=== PATIENT | female | born 1950 | race Caucasian/White ===

== ENCOUNTER 2023-10-01 20:23 | Inpatient (IN) | payer MEDICARE, SELFPAY ==
[2023-10-01] VITALS (7 sets, daily range): BP systolic 174–215; BP diastolic 70–89; PULSE 19–79; RESP 16–20; TEMP 36.4–36.9; O2SAT 94–98; BMI 19.2
--- NOTE | 2023-10-01 20:35 | XRR_ITS ---
PROCEDURE INFORMATION: Exam: XR Chest Exam date and time: 10/01/2023 8:53 PM Age: 72 years old Clinical indication: Injury or trauma; Fall; Blunt trauma (contusions or hematomas) TECHNIQUE: Imaging protocol: Radiologic exam of the chest. Views: 1 view. COMPARISON: No relevant prior studies available. FINDINGS: Lungs: Calcified granuloma noted in the left lung base. Hyperinflated lungs. No consolidation. Pleural spaces: Unremarkable. No pleural effusion. No pneumothorax. Heart/Mediastinum: Unremarkable. No cardiomegaly. Bones/joints: Unremarkable. XR/XR chest 1V portable [id number] IMPRESSION: No acute findings.
--- NOTE | 2023-10-01 20:35 | XRR_ITS ---
PROCEDURE INFORMATION: Exam: XR Left Hip Exam date and time: 10/01/2023 8:43 PM Age: 72 years old Clinical indication: Injury or trauma; Fall; Blunt trauma (contusions or hematomas); Left; Hip TECHNIQUE: Imaging protocol: Radiologic exam of the left hip. Views: 2 or 3 views hip with pelvis when performed. COMPARISON: No relevant prior studies available. FINDINGS: Bones/joints: Intertrochanteric left hip fracture. Soft tissues: Unremarkable. XR/XR hip LT 2-3V wo/w pel* [id number] IMPRESSION: Intertrochanteric left hip fracture.
--- NOTE | 2023-10-01 20:37 | ED_ITS ---
HPI - Fall General: Chief Complaint: Fall Stated Complaint: Fall Hip Pain Time Seen by Provider: 10/01/23 20:33 Source: patient Mode of arrival: ambulatory Limitations: no limitations History of Present Illness: 72-year-old female who states that she had tripped and fell at home onto hardwood floor. She states that she landed on her left hip and has had severe left hip pain since then. She denies any other injuries today she states she is not able to stand on that leg. She rates her pain an 8 out of 10 is much worse with movement. Associated symptoms-after fall: Denies abdominal pain, chest pain, headache(s) or neck pain Review of Systems Const: Denies: fever(s), chills, body aches or change in appetite Eyes: Denies: eye discomfort ENMT: Denies: throat pain or dental pain Card: Denies: chest pain Resp: Denies: dyspnea GI: Denies: abdominal pain, nausea, vomiting or diarrhea Musc: Reports: extremity pain; Denies: neck pain or back pain Skin/Breast: Denies: rash Neuro: Denies: headache(s) Physical Exam Const: COMMON NORMALS: no acute distress, patient oriented x3 and healthy appearing HENMT: COMMON NORMALS: normocephalic and atraumatic HEAD & SCALP: normocephalic and atraumatic Neck/C-Spine: COMMON NORMALS: full ROM and supple Chest: COMMONS NORMALS: normal inspection of the chest Resp: COMMON NORMALS: normal respiratory effort Cardio: COMMON NORMALS: regular rate, regular rhythm and No murmurs present (Cardio) RATE: regular rate RHYTHM: regular rhythm GI: COMMON NORMALS: Normal to inspection, nondistended, normoactive bowel sounds present, Soft to palpation, non-tender and no masses PALPATION: Yes Soft to palpation Extremity: NARRATIVE EXTREMITY EXAM: Tenderness over left hip Neuro: COMMON NORMALS: patient oriented x3, moves all extremities and no focal motor deficits Psych: COMMON NORMALS: mental status grossly normal, Normal thought process present and cooperative THOUGHT PROCESS: Normal thought process present Skin: COMMON NORMALS: no rashes or lesions noted and no wounds GENERAL SKIN EXAM: no rashes or lesions noted Course Vital Signs: Vital signs: Vital Signs Temperature 97.5 F L 10/01/23 20:30 Pulse Rate 68 10/01/23 20:30 Respiratory Rate 18 10/01/23 20:30 Blood Pressure 215/89 10/01/23 20:30 Pulse Oximetry 98 10/01/23 20:30 MDM - Fall Medical Decision Making Patient presents here with a left hip fracture from a fall no other injuries noted from the fall spoke to hospitalist along with orthopedist and will admit at this time. Medical Records I reviewed the patient's medical records. Lab Data I reviewed the patient's lab results. 10/01/23 20:45 10/01/23 20:45 Laboratory Results WBC 11.60 10^3/uL (3.29-11.43) H 10/01/23 20:45 RBC 3.72 10^6/uL (3.85-5.65) L 10/01/23 20:45 Hgb 12.10 g/dL (11.27-16.99) 10/01/23 20:45 Hct 37.4 % (36-47) 10/01/23 20:45 MCV 100.5 fl (85-98) H 10/01/23 20:45 MCH 32.5 pg (27-33) 10/01/23 20:45 MCHC 32.4 g/dL (30-55) 10/01/23 20:45 RDW 13.2 % (12.1-15.1) 10/01/23 20:45 Plt Count 299 10^3/cmm (157-399) 10/01/23 20:45 MPV 9.3 fL (7.4-10.4) 10/01/23 20:45 Neut % (Auto) 82.2 % 10/01/23 20:45 Lymph % (Auto) 10.3 % 10/01/23 20:45 Laurel % (Auto) 5.7 % 10/01/23 20:45 Eos % (Auto) 1.2 % 10/01/23 20:45 Baso % (Auto) 0.1 % 10/01/23 20:45 Neut # (Auto) 9.53 10^3/uL (1.8-7.7) H 10/01/23 20:45 Lymph # (Auto) 1.2 10^3/uL (0.8-4.8) 10/01/23 20:45 Laurel # (Auto) 0.7 10^3/uL (0.2-0.9) 10/01/23 20:45 Eos # (Auto) 0.1 10^3/uL (0.0-0.8) 10/01/23 20:45 Baso # (Auto) 0.0 10^3/uL (0.0-0.1) 10/01/23 20:45 Nucleated RBC % (auto) 0 % 10/01/23 20:45 Nucleated RBCs # 0.0 /100WBC 10/01/23 20:45 PT 15.00 SECONDS (12.1-14.9) H 10/01/23 20:45 INR 1.14 (0.8-1.2) 10/01/23 20:45 XR interpretation done by ED provider, pending radiology final review ED provider radiology interpretation(s): xr L hip: intertrochanteric fracture Discharge Plan Discharge Patient Disposition: Admitted As Inpatient Clinical Impression: Closed fracture of left hip Condition: Stable Prescriptions: No Action acetaminophen-codeine 300-15 mg tablet 1 tab PO TID PRN (Reason: pain) Qty: 90 1RF lisinopril-hydrochlorothiazide 20-12.5 mg tablet 1 tab PO DAILY Qty: 90 3RF Referrals: Abiodun Joiner DO [Primary Care Provider] - Coding Level of Care Code ED Admitting Coordinator for Gerry Sánchez
--- NOTE | 2023-10-01 20:55 | ECG_ITS ---
[facility] Test Date: 2023-10-02 Pat Name: Milana Henning Department: Room: 272 Gender: Female [employer] Cell [employer] Assembler: : 1951-07-08 Requested By: Jensen Moses Order Number: [id number] Rene MD: Konstantin Evans M.D. Measurements Intervals Bard Rate: 73 P: 66 TN: 174 QRS: 45 QRSD: 82 T: 66 QT: 412 QTc: 455 Interpretive Statements SINUS RHYTHM No previous ECG available for comparison Electronically Signed On 10-03-2023 0:38:54 SOLE INKER by Konstantin Evans M.D. [email or web address]
[2023-10-01 21:01] LABS: Basophils % 0.1 %; Eosinophils # 0.1 10^3/uL (0.0-0.8); Eosinophils % 1.2 %; Hematocrit 37.4 % (36-47); Lymphocytes # 1.2 10^3/uL (0.8-4.8); Lymphocytes % 10.3 %; Mean Corpuscular HGB Conc 32.4 g/dL (30-55); Mean Corpuscular Hemoglobin 32.5 pg (27-33); Mean Corpuscular Volume 100.5 fl (85-98); Mean Platelet Volume 9.3 fL (7.4-10.4); Monocytes # 0.7 10^3/uL (0.2-0.9); Monocytes % 5.7 %; Neutrophils # 9.53 10^3/uL (1.8-7.7); Neutrophils % 82.2 %; Nucleated Red Blood Cells % 0 %; Platelet Count 299 10^3/cmm (157-399); Red Blood Count 3.72 10^6/uL (3.85-5.65); Red Cell Distribution Width 13.2 % (12.1-15.1)
[2023-10-01 21:07] LABS: INR 1.14 (0.8-1.2)
[2023-10-01] MEDS: morphine 4 mg/mL SDV 1 mL IVP ×2 (21:09→21:58)
[2023-10-01] MEDS: ondansetron 2 mg/ML SDV 2 mL 4 MG IVP (21:10)
[2023-10-01] MEDS: hyDRALAzine 20 mg/mL INJ 1 mL 10 MG IVP (21:10)
[2023-10-01 21:16] LABS: Alanine Aminotransferase 15 U/L (0-33); Albumin Level 4.2 g/dL (3.5-5.2); Alkaline Phosphatase 133 U/L (35-105); Anion Gap 14.4 (5-19); Aspartate Amino Transferase 20 U/L (0-32); Blood Urea Nitrogen 16 mg/dL (8-23); Calcium 8.7 mg/dL (8.5-10.5); Carbon Dioxide 26 mmol/L (22-29); Chloride 102 mmol/L (98-107); Globulin 2.4 g/dL (1.3-4.6); Glucose 174 mg/dL (65-115); Osmolality Calculated 291 mOsm/kg (285-295); Potassium 4.4 mmol/L (3.5-5.1); Sodium 138 mmol/L (136-145); Total Bilirubin 0.3 mg/dL (0.15-1.2); Total Protein 6.6 g/dL (6.6-8.7)
--- NOTE | 2023-10-01 21:32 | PC.NURSE ---
Report called to Med-Surg, report given by SAVANNAH Alba to SAVANNAH Estevez.
--- NOTE | 2023-10-01 21:55 | PC.NURSE ---
Dr Diaz gave verbal orders to put in order for 4mg morphine IVP once.
--- NOTE | 2023-10-01 22:00 | P.HP_ITS ---
Providers/Chief Complaint Admitting Physician: Anthony Diaz Primary Care Provider: Abiodun Joiner DO Chief Complaint: Fall Hip Pain History of Present Illness Milana Henning is a 72 year old female who states does not have any medical history apart from some hypertension related to her age, used to smoke more in the past, currently states does not smoke enough to count, was active all day today working in her garden, states dog up a tree, later was carrying a large basket down some stairs, lost her balance and fell down. Subsequently with pain in the left hip, on assessment in ER finding of intertrochanteric fracture of left hip. States she otherwise is as healthy as they come , states she is normally active, denies any exertional chest pain pressure or dyspnea or other limitations. Review of Systems Const: Denies: fever(s), chills, body aches or malaise ENMT: Denies: throat pain Card: Denies: chest pain, edema, pre-syncope or dyspnea on exertion Resp: Denies: dyspnea, productive cough, change in phlegm color or hemoptysis GI: Denies: abdominal pain, nausea, vomiting, diarrhea, constipation, hematochezia or melena : Denies: flank pain, urinary frequency or hematuria Musc: Reports: joint pain (L hip); Denies: back pain, joint swelling or joint redness Skin/Breast: Denies: rash or new lesions Neuro: Denies: headache(s), numbness in extremities, weakness in extremities, dizziness, confusion or seizure-like activity Medications/Allergies Home Medications Medication Instructions Recorded Confirmed Last Taken Type acetaminophen 300 mg-codeine 15 mg 1 tab PO TID PRN pain #90 tabs 08/19/23 08/19/23 Unknown Rx tablet lisinopril 20 1 tab PO DAILY #90 tabs 08/19/23 08/19/23 Unknown Rx mg-hydrochlorothiazide 12.5 mg tablet Allergies Allergy/AdvReac Type Severity Reaction Status Date / Time No Known Allergies Allergy Unverified 08/19/23 08:46 PFSH Acute PFSH: Medical History Hypertension Smoking Family History (Updated 10/01/23 @ 22:30 by Anthony Diaz MD) Other No significant family history Social History Smoking and tobacco/nicotine status: current some day tobacco/nicotine user Lives independently: Yes Household members: spouse Marital status: Vitals/I&O/Wt Last Vital Signs Temp 97.5 F L 10/01/23 20:30 Pulse 78 10/01/23 21:22 Resp 18 10/01/23 21:58 BP 174/70 10/01/23 21:22 Pulse Ox 97 10/01/23 21:22 Weight last 48 hrs Weight 50.802 kg Physical Exam Narrative: at bedside. Const: COMMON NORMALS: patient oriented x3 and alert GENERAL APPEARANCE: cooperative ORIENTATION/CONSCIOUSNESS: Yes awake HENMT: COMMON NORMALS: oropharynx normal Neck/C-Spine: COMMON NORMALS: no JVD Resp: COMMON NORMALS: normal respiratory effort and clear to auscultation bilaterally AUSCULTATION: clear to auscultation bilaterally Cardio: COMMON NORMALS: no JVD, regular rhythm, S1 normal heart sound present, S2 normal heart sound present and No murmurs present (Cardio) RHYTHM: regular rhythm HEART SOUNDS: S1 normal heart sound present and S2 normal heart sound present GI: COMMON NORMALS: Normal to inspection, nondistended, normoactive bowel sounds present, Soft to palpation and non-tender PALPATION: Yes Soft to palpation Extremity: COMMON NORMALS: no joint enlargement and no pedal edema NARRATIVE EXTREMITY EXAM: Extended left lower extremity, appears perfused, warm to touch. Neuro: COMMON NORMALS: patient oriented x3 and moves all extremities SENSORIUM/ORIENTATION: Yes alert Skin: COMMON NORMALS: no rashes or lesions noted GENERAL SKIN EXAM: no sreekanth hes or lesions noted Data 10/01/23 20:45 10/01/23 20:45 A&P Assessment and plan (1) Closed fracture of left hip: Closed left hip fracture after a fall at home carrying a large basket she states she lost her balance walking downstairs. She is interested in seeking repair of the hip and orthopedics has been consulted and will be seeing her. Discussing risks with anesthesia she does have history of hypertension, as well as smoking history, has cut down but still smoking. Otherwise she states she is very active and has felt as healthy as they, , denies any shortness of breath, chest pain or other exertional limitation. Prior to admission today was working in her garden and dug up a whole tree. Vitals, CBC, CMP, INR, chest x-ray, hip x- ray reviewed. ER documentation reviewed, discussed with ER physician. Baseline EKG requested. We will keep n.p.o. in anticipation of surgical repair of fracture tomorrow. Discussed with her holding antihypertensives. Discussed risk of anemia, recheck CBC and chemistry with noted mild renal dysfunction, creatinine 1.3, unclear if MICHEL versus CKD. BUN is noted WNL. 1 dose of heparin VTE prophylaxis, SCDs, hold additional heparin in anticipation of surgical procedure. Bedrest at current time. Pain control, requiring IV morphine in ER, states the first dose did not take the pain away. Dose repeated. We will switch to IV Dilaudid as needed for severe pain. Tylenol as needed. Case management consultation for disposition planning. (2) Hypertension: Blood pressure elevated 188/81, received a dose of hydralazine, but states otherwise she is normally controlled the last visit she states her blood pressure at PCPs office was 120s over 75. States likely is affected by pain as she is currently hurting. Requested pain control. (3) Smoking: Discussed smoking cessation, continue to encourage. nicotine replacement as needed. Attestations Medical Necessity Statement*: Admission of over 2 midnights anticipated for assessment management of left hip fracture. and High MDM includes amount and/or complexity of data reviewed/ordered [ previous or external records, resulted lab(s)/test(s), ordered lab(s)/test(s) and other healthcare professional discussion] and described risk of complication, morbidity or mortality of management as documented Diagnoses Closed fracture of left hip S72.002A Hypertension I10 Smoking F17.200
[2023-10-01] MEDS: heparin 5,000 unit/mL INJ 1 mL 5000 UNIT SUBCUT (23:05)
[2023-10-01] MEDS: HYDROmorphone 1 mg/mL INJ 1 mL 0.5 MG IVP (23:06)
[2023-10-02] VITALS (21 sets, daily range): BP systolic 108–174; BP diastolic 44–79; PULSE 45–74; RESP 12–20; TEMP 36.1–37.1; O2SAT 92–100
[2023-10-02] MEDS: cyclobenzaprine 10 mg Tablet 5 MG PO ×3 (01:10→11:36)
--- NOTE | 2023-10-02 01:38 | PC.NURSE ---
Patient refusing loyd catheter and repeat left leg x-ray at this time.
[2023-10-02] MEDS: HYDROmorphone 1 mg/mL INJ 1 mL 0.5 MG IVP ×3 (03:17→11:37)
[2023-10-02 06:29] LABS: Basophils % 0.1 %; Eosinophils % 0.2 %; Hematocrit 31.6 % (36-47); Lymphocytes # 1.3 10^3/uL (0.8-4.8); Lymphocytes % 9.2 %; Mean Corpuscular HGB Conc 32.9 g/dL (30-55); Mean Corpuscular Hemoglobin 33.2 pg (27-33); Mean Platelet Volume 9.3 fL (7.4-10.4); Monocytes % 7.5 %; Neutrophils # 11.24 10^3/uL (1.8-7.7); Neutrophils % 82.4 %; Nucleated Red Blood Cells % 0 %; Platelet Count 253 10^3/cmm (157-399); Red Blood Count 3.13 10^6/uL (3.85-5.65); Red Cell Distribution Width 13.2 % (12.1-15.1); White Blood Count 13.65 10^3/uL (3.29-11.43)
[2023-10-02 06:54] LABS: Alanine Aminotransferase 14 U/L (0-33); Alkaline Phosphatase 111 U/L (35-105); Anion Gap 12.6 (5-19); Aspartate Amino Transferase 15 U/L (0-32); Blood Urea Nitrogen 15 mg/dL (8-23); Calcium 8.8 mg/dL (8.5-10.5); Carbon Dioxide 24 mmol/L (22-29); Chloride 102 mmol/L (98-107); Creatinine Clr Calc Pharmacy 54.1095; Globulin 1.5 g/dL (1.3-4.6); Glucose 107 mg/dL (65-115); Osmolality Calculated 279 mOsm/kg (285-295); Potassium 4.6 mmol/L (3.5-5.1); Sodium 134 mmol/L (136-145); Total Bilirubin 0.7 mg/dL (0.15-1.2); Total Protein 5.5 g/dL (6.6-8.7)
--- NOTE | 2023-10-02 08:23 | P.CONIM_ITS ---
Reviewed PAs assessment and plan and agree with assessment and plan. Patient sustained a left intertrochanteric femur fracture that is displaced. She had baseline lives at home with her is Community ambulator at baseline. Denies any loss of consciousness or any other hip pain prior to her fall. At this point in time she has been admitted by the hospitalist orthopedics was c onsulted for treatment recommendations. This point time would recommend left hip cephalomedullary nail for left hip fracture to help with pain control as well as for earlier mobilization. We talked about the ins and outs procedure the risk benefits complications and alternatives with surgical nonsurgical treatment options. Risk of surgery include not limited to make a better make it worse injury to nerves also tendons, blood clot, heart attack, stroke, on table, hardware failure, nonunion. Understanding risk of surgery she elects to proceed all questions been answered at this time. We will proceed with surgical intervention with left hip cephalomedullary nail today. Brady Elizondo DO Providers/Reason For Consult Consulting Physician/Specialty*: Dr. Elizondo/orthopedic surgeon Reason for Consult*: Closed left hip fracture Requesting Physician: Dr. Moses ED Attending Physician: Jarrod Santoyo MD Primary Care Provider: Abiodun Joiner DO History of Present Illness History of Present Illness Milana Henning is a 72 year old female With a left hip fracture. Past medical history of hypertension. Patient was seen in the emergency department yesterday after she had a fall at her house where she was carrying a large basket down some steps and she lost her balance and fell backwards landing on left hip. At baseline, Patient is fully ambulatory without any Walking aid/assistive devices. Orthopedics were consulted to manage left hip fracture. Denies any fevers, chills, chest pain, shortness of breath, abdominal pain, nausea/vomiting or any UTI symptoms. Review of Systems Const: Denies: fever(s) or chills Card: Denies: chest pain Resp: Denies: dyspnea GI: Denies: abdominal pain, nausea or vomiting : Denies: dysuria Musc: Reports: extremity pain (left hip), joint pain (left hip) and limited range of motion (left hip) Medications/Allergies Home Medications Medication Instructions Recorded Confirmed Last Taken Type acetaminophen 300 mg-codeine 15 mg 1 tab PO TID PRN pain #90 tabs 08/19/23 10/02/23 Unknown Rx tablet lisinopril 20 1 tab PO DAILY #90 tabs 08/19/23 10/02/23 Unknown Rx mg-hydrochlorothiazide 12.5 mg tablet Allergies Allergy/AdvReac Type Severity Reaction Status Date / Time No Known Allergies Allergy Verified 10/02/23 08:08 Current Medications Generic Name Dose Route Start Last Admin Trade Name Freq PRN Reason Stop Dose Admin Cyclobenzaprine HCl 5 mg 10/02/23 00:10 10/02/23 01:10 Cyclobenzaprine 10 Mg Tablet PO 10/04/23 00:09 5 mg TID PRN Administration MUSCLE SPASMS Hydromorphone HCl 0.5 mg 10/01/23 22:22 10/02/23 03:17 Hydromorphone 1 Mg/Ml Inj 1 Ml IVP 0.5 mg Q4H PRN Administration SEVERE PAIN PFSH Acute PFSH: Medical History Hypertension Smoking Family History (Updated 10/01/23 @ 22:30 by Anthony Diaz MD) Other No significant family history Social History Smoking and tobacco/nicotine status: current some day tobacco/nicotine user Lives independently: Yes Household members: spouse Marital status: Vitals/I&O/Wt Last Vital Signs Temp 98.8 F 10/02/23 07:34 Pulse 57 L 10/02/23 07:34 Resp 17 10/02/23 07:34 BP 152/70 10/02/23 07:34 Pulse Ox 94 10/02/23 07:34 O2 Del Method Room Air 10/02/23 07:34 10/01/23 10/02/23 10/02/23 22:59 06:59 14:59 Output Total 750 / 750 Balance -750 / -750 Weight last 48 hrs Weight 112 lb Physical Exam Const: COMMON NORMALS: no acute distress and healthy appearing GENERAL APPEARANCE: cooperative HENMT: COMMON NORMALS: atraumatic HEAD & SCALP: normal to inspection and atraumatic Resp: COMMON NORMALS: normal respiratory effort EFFORT & INSPECTION: Yes able to speak in complete sentences and No respiratory distress Extremity: NARRATIVE EXTREMITY EXAM: Left hip left lower extremity-He has shortened and externally rotated. .She has tenderness to palpation over Greater trochanter of left hip. Pedal pulse 2+. Unable to do any range of motion and left leg due to pain. Patient can wiggle toes.Toes are warm well perfused with normal cap refill under 2 seconds. Secondary assessment of all other extremities show no visible deformities. She has full range of motion in right leg without any pain. She has full range of motion in arms bilaterally without any pain or discomfort. Radial pulse 2+ bilaterally and shoulders are nontender to palpation bilaterally. Skin: GENERAL SKIN EXAM: dry skin Urinary Catheter Management: 2-way Urethral: Cath Placed During This Visit: yes Reason for Continuing Indwelling Catheter: Perioperative Use in Selected Surgeries Urinary Catheter Date of Insertion: 10/02/23 Urinary Catheter Time of Insertion: 06:11 Data 10/02/23 05:45 10/02/23 05:45 Xray Ortho: Radiologist's impression: Left hip Xray XR/XR hip LT 2-3V wo/w pel* [id number] IMPRESSION: Intertrochanteric left hip fracture. ?Dictated By: Edi Mata DO Signed By: Edi Mata DO Signed Date/Time: 10/01/232129 DD/ 42 A&P Assessment and plan (1) Closed fracture of left hip: Plan Plan: -Imaging and Labs reviewed -Hospitalist on board for medical management. -VTE prophylaxis -Nonweightbearing on Left leg -Pain control -N.p.o. -Surgery later Today/afternoon for Left hip Trochanteric femur nail Coding Level of Care Code Acute Code for g Fwd Diagnoses Closed fracture of left hip S72.002A
--- NOTE | 2023-10-02 10:51 | PC.CHAP ---
Pastoral Care Encounter/Spiritual Assessment Type of Contact [] Declined infection prevention specialist visit [] Patient/Family/Request visit [] Outpatient visit [] Follow-up visit [] Physician referral [] Code/Alert [x] Routine visit [] Staff referral [] Actively dying [] Patient sleeping [] Family support [] [] Out of room [] Palliative care [] [] Receiving care in room [] Pre-surgical visit [] Trauma [] Long length of stay [] ICU visit [] Other: Relational/Emotional Strength [] Patient feels connected with others/family/visitors/staff [] Distress [] Loneliness/isolation [] Abandonment Spirituality of Patient [] Person of Ani [] Attends Roman Catholic of their Ani [] Believes in Prayer [] Reads Bible or Sabianism materials [] There are Spiritual issues to be addressed Laminator Hand Interventions [x] Prayer [x] Active listening [] Non-anxious presence [] Spiritual/emotional support [] Crisis/trauma care [] Spiritual counseling [] Bereavement support [] Provided bereavement packet [] Provided Bible/devotional materials [] Provided toy/stuffed animal, coloring book to patient or family member [] Provided Communion [] Anointing/[place] [] Salvation [] Completed spiritual assessment [] Other: Impact on Illness or Injury [] Angry [] Fearful [] Anxious [] Often cries [] Exhaustion [] Unable to work [] Unable to attend mormon [] Unable to walk/stand [] Unable to read [] Unable to drive [] Unable to eat/drink [] Unable to sleep [] Unable to be with family [] Patient intubated [] Other: Summary Time spent with patient 15 min
--- NOTE | 2023-10-02 12:48 | PM.PN ---
Subjective Subjective: Patient endorses significant pain in hip. Currently rates 8 out of 10 but states she just received Dilaudid. Reports prior dose of Dilaudid overnight improved the pain. Endorses associated muscle cramps. Denies fevers, chills, nausea, or emesis. Medications: Reviewed: Yes Vitals/I&O/Wt Last Vital Signs Temp 98.0 F 10/02/23 11:26 Pulse 62 10/02/23 11:26 Resp 18 10/02/23 11:37 BP 153/73 10/02/23 11:26 Pulse Ox 96 10/02/23 11:37 O2 Del Method Room Air 10/02/23 11:26 10/01/23 10/02/23 10/02/23 22:59 06:59 14:59 Output Total 750 / 750 Balance -750 / -750 Weight last 48 hrs Weight 50.802 kg Physical Exam Narrative: General: Patient is awake and alert. Head: Normocephalic. Atraumatic. EOM intact. Neck: No JVD. Cardiovascular: RRR. No gallops. No murmurs. No peripheral edema. Lungs: Clear to auscultation, no use of accessory muscles, no crackles or wheezes. Skin: No jaundice. No rashes. Abdomen: Normal bowel sounds, abdomen soft and nontender. Genito Urinary: Genital exam not performed since complaints not related. Rectal: Rectal exam not performed since no symptoms indicated blood loss. Extremities: No cyanosis or clubbing. LLE shorter and externally rotated. Neurological: Moves all 4 extremities. No myoclonus. Urinary Catheter Management: 2-way Urethral: Cath Placed During This Visit: yes Reason for Continuing Indwelling Catheter: Perioperative Use in Selected Surgeries Urinary Catheter Date of Insertion: 10/02/23 Urinary Catheter Time of Insertion: 06:11 Data 10/02/23 05:45 10/02/23 05:45 A&P Assessment and plan (1) Closed fracture of left hip: Bedrest Baez Hydromorphone for analgesic Orthopedics consulted, anticipate surgery later today Therapy after surgery (2) Hypertension: Exacerbated by pain from hip fracture Optimize pain control Monitor blood pressure (3) Smoking: Wound benefit from cessation (4) MICHEL (acute kidney injury): Resolved with IV fluids Plan DVT ppx: SCD Code: Full Attestations Medical Necessity Statement*: Patient requires ongoing hospitalization for IV analgesics, surgery and supportive care. Coding Level of Care Code Acute Code for Chg Fwd Diagnoses Closed fracture of left hip S72.002A Hypertension I10 Smoking F17.200 MICHEL (acute kidney injury) N17.9
[2023-10-02] MEDS: sodium chloride 0.9% 1,000 ML 30 ML IV (13:24)
[2023-10-02] MEDS: acetaminophen 1,000 MG/100 ML PIGGYBACK 400 MG IV (13:24)
[2023-10-02] MEDS: ketorolac 30 mg/mL INJ IVP (13:27)
--- NOTE | 2023-10-02 13:30 | ANES.PREANE2 ---
Pre-Anesthetic Assessment Height/Weight: Height 1.63 m Weight 50.802 kg Temp Pulse Resp BP Pulse Ox O2 Del Method 98.0 F 62 18 153/73 96 Room Air 10/02/23 11:26 10/02/23 11:26 10/02/23 11:37 10/02/23 11:26 10/02/23 11:37 10/02/23 11:26 Preop Diagnosis: Left Intertrochanteric femur fx Operation Date: 10/02/23 14:15 Proposed Procedures p Trochanteric Femoral Nail(Left) - Brady Elizondo, Familial anesthetic complications: PONV Was Beta Amilcar taken within 24 hours: N/A Was Clonidine taken within 24 hours: N/A Last intake: Intake Last Liquid Date 10/02/23 Last Liquid Time 00:00 Last Solid Date 10/01/23 Last Solid Time 17:30 Social Tobacco and No alcohol Exam alert, oriented x 3, clear to auscultation bilaterally and regular rate & rhythm Airway Submandibular: within normal limits Cervical ROM: within normal limits Mallampati: Class II Dentition: partials Pulmonary Chronic Obstructive Pulmonary Disease CV/HEM Hypertension [facility] [place] Osteoarthritis/DJD Anesthetic Plan ASA status: 3 Anesthesia: General (TIVA) Medications/Allergies Home Medications Medication Instructions Recorded Confirmed Last Taken Type acetaminophen 300 mg-codeine 15 mg 1 tab PO TID PRN pain #90 tabs 08/19/23 10/02/23 Unknown Rx tablet lisinopril 20 1 tab PO DAILY #90 tabs 08/19/23 10/02/23 Unknown Rx mg-hydrochlorothiazide 12.5 mg tablet Allergies Allergy/AdvReac Type Severity Reaction Status Date / Time No Known Allergies Allergy Verified 10/02/23 08:08 Current Medications Generic Name Dose Route Start Last Admin Trade Name Freq PRN Reason Stop Dose Admin Cyclobenzaprine HCl 5 mg 10/02/23 00:10 10/02/23 11:36 Cyclobenzaprine 10 Mg Tablet PO 10/04/23 00:09 5 mg TID PRN Administration MUSCLE SPASMS Hydromorphone HCl 0.5 mg 10/02/23 08:40 10/02/23 11:37 Hydromorphone 1 Mg/Ml Inj 1 Ml IVP 0.5 mg Q2H PRN Administration SEVERE PAIN Sodium Chloride 1,000 mls @ 30 mls/hr 10/02/23 13:00 10/02/23 13:24 Sodium Chloride 0.9% IV 10/03/23 12:59 30 mls/hr .Q24H DAVID Administration PFSH Anesthesia Medical History Hypertension Smoking Family History (Updated 10/01/23 @ 22:30 by Anthony Diaz MD) Other No significant family history Social History Smoking and tobacco/nicotine status: current some day tobacco/nicotine user Lives independently: Yes Household members: spouse Marital status: Data Anesthesia 10/02/23 05:45 10/02/23 05:45 Short CBC 10/01/23 10/02/23 Range/Units 20:45 05:45 WBC 11.60 H 13.65 H (3.29-11.43) 10^3/uL Hgb 12.10 10.40 L (11.27-16.99) g/dL Hct 37.4 31.6 L (36-47) % MCV 100.5 H 101.0 H (85-98) fl Plt Count 299 253 (157-399) 10^3/cmm Neut % (Auto) 82.2 82.4 % Neut # (Auto) 9.53 H 11.24 H (1.8-7.7) 10^3/uL BMP 10/01/23 10/02/23 20:45 05:45 Sodium 138 134 L Potassium 4.4 4.6 Chloride 102 102 Carbon Dioxide 26 24 BUN 16 15 Creatinine 1.3 H 0.8 Glucose 174 H 107 Calcium 8.7 8.8 Liver Function 10/01/23 10/02/23 Range/Units 20:45 05:45 Total Bilirubin 0.3 0.7 (0.15-1.2) mg/dL AST 20 15 (0-32) U/L ALT 15 14 (0-33) U/L Alkaline Phosphatase 133 H 111 H (35-105) U/L Albumin 4.2 4.0 (3.5-5.2) g/dL Coags 10/01/23 20:45 PT 15.00 H INR 1.14 Cardiac Studies: No Data to Display
[2023-10-02] MEDS: scopolamine 1.5 Patch 1 PATCH TRANSDERMA (13:31)
[2023-10-02] MEDS: diphenhydrAMINE 50 mg/mL SDV 1mL 12.5 MG IVP (13:33)
[2023-10-02] MEDS: ceFAZolin 2,000 MG in sodium chloride 0.9% (plus) 50 ML 100 MG IV ×2 (13:51→21:53)
[2023-10-02] MEDS: tranexamic acid 1,000 mg/10mL SDV 1000 MG IV (14:24)
[2023-10-02] MEDS: lidocaine 1% INJ 10 mL (per mL) 20 ML INJECTION (14:47)
[2023-10-02] MEDS: ROPivacaine 0.5% SDV 30 mL 100 MG INJECTION (14:48)
--- NOTE | 2023-10-02 15:07 | SUR.OPER ---
Called and updated patient family with status.
--- NOTE | 2023-10-02 15:15 | P.BOP_ITS ---
Date of Procedure: 10/02/2023 Surgeon: Brady Elizondo DO Clinical Marketing Manager(s): Jarrod Elizondo PA-C Procedure(s) performed: Left hip trochanteric femur nail Findings of the procedure(s): Left hip intertrochanteric femur fracture, left hip trochanteric femur nail procedure went as planned without complications Estimated blood loss: 125 cc Specimen(s) removed: None Post-operative diagnosis: Left intertrochanteric femur fracture
--- NOTE | 2023-10-02 15:17 | P.OP_ITS ---
Operative Report Date of procedure: October 02, 2023 Surgeon: Brady Elizondo DO Guest Services Assistant: Jarrod Elizondo PA-C: PA was necessary for assistance in this case with retraction and with assistance with instrumentation as well as holding reduction. Assistance with wound closure and execution of this procedure Procedure: Preoperative diagnosis: Left intertrochanteric femur fracture Post-op diagnosis: Left?displaced intertrochanteric femur fracture Procedure done: ?Left?intertrochanteric femur fracture ORIF with cephalomedullary nail Implants: [place] gamma nail short 11 mm x 180 mm x 125 degree Lag screw 10.5 mm x 100?mm Distal?locking screw 5 mm x?35?mm Surgeon: Brady Elizondo DO Estimated blood?loss: 125 mm IV fluids: See anesthesia record Urine output: See anesthesia record Complications: See operative report Findings: See operative report narrative Condition: stable Disposition: Floor Brief History: Patient sustained a fall and was found to have a?Leftintertrochanteric hip fx.?Pt has?been unable to bear weight,?Left?hip/lower extremity shortened and externally rotated.? At this point time Pt?was admitted by the hospitalist team and orthopedics was consulted.??Refer to consult note for detailed HPI.??We talked about treatment options as far as nonoperative and operative intervention. Recommend?Left?hip?trochanteric femur nail.??At this point time patient would?like to pursue surgical intervention for benefits of pain control and earlier mobilization.?? Patient understands the ins and outs of procedure, the risk benefits complication alternatives of surgical nonsurgical treatment options.? Understanding risk of surgery?pt?agrees to proceed with surgical intervention all questions answered.? Consent obtained. Procedure: Patient seen evaluated in the preoperative holding area.? Consent was obtained.? Correct extremity was then marked.? Once cleared by anesthesia and the hospitalist team patient was taken back to the operative suite.? Patient underwent anesthesia per the anesthesia department.? Once appropriately anesthetized patient was placed on a fracture [place] table.? Patient was appropriately secured to the bed.? All bony prominences were well-padded.? At this point time patient received appropriate preoperative antibiotics.? Final timeout was performed.? Prior to beginning surgery a standard closed reduction maneuver was placed on the [place] table and?large C-arm was brought in.? After performing a closed reduction maneuver there was able to achieve satisfactory reduction of?Left?intertrochanteric femur fracture.? Fracture site did not extend into the subtrochanteric region as result plan was for a short nail.?? This point time the operative extremity was then prepped and draped in standard orthopedic fashion. A standard?longitudinal incision was made just proximal to the greater?trochanter roughly 4 cm in?length sharp scalpel vision was made through skin and subcutaneous tissue.? I then utilized a blunt Norman to split? fascia and mobilized directly down to the greater?trochanter.? I then inserted my starting guidewire which was placed appropriate starting position the tip of the greater?trochanter.? This was advanced in AP and?lateral films to be in center center position and advanced to the?level?lesser?trochanter.? This was confirmed to be in center center position on AP and?lateral imaging.? Once this was done I then introduced my opening reamer which was then subsequently guide pin removed.? I selected a 11 mm x 180 mm x 125 degree. At this point time the nail was then?loaded onto the [employer] gamma?trochanteric nail guide.? This was placed within the canal and confirmed with XR and the setscrew was then gently placed not?locked.? The nail was then impacted to appropriate depth .? At this point time I then inserted my?lag screw guide and subsequently made a small incision through skin and subcutaneous tissue splitting the IT band?longitudinally and the guide was placed directly onto bone.? Next I then subsequently placed the guidewire in center center position in the head with an appropriate tip to apex distance this was confirmed with multiple orthogonal images.? Once I was satisfied with my planned?lag screw placement I then measured which was?100?mm.? I then set my cannulated drill and subsequently reamed this into the head at appropriate depth.? I then had my rep open the 10.5 mm x?100?mm?lag screw which was then opened on the back table and subsequently screwed into place over my cannulated drill guide.? This was placed with excellent tip to apex distance.? Next I then utilized the compressing device and subsequently compressed my fracture after I?let off traction.? This had excellent fracture compression and opposition and closing down to my fracture?line.? Next I then?locked the nail by?locking my setscrew.? This point time the guidewire as well as the sleeve was then removed.? Next I plan for statically?locking the nail distally.? This triple sleeve was then placed a small stab incision was made blunt dissection directly down to bone and the guide sleeve was placed and?locked directly onto the bone.? I then inserted the drill bit and subsequently drilled bicortically measured appropriate?length screw and then placed a 35?mm distal interlocking screw and had excellent fixation was appropriate?length.? This point time is completed my construct I remove the outer jig and took final images of AP and?lateral of the?Left?intertrochanteric femur fracture which showed stable reduction and stable fixation.? Incision was then thoroughly irrigated.? Hemostasis was maintained with electrocautery.? I then once again thoroughly irrigated the incisions and then subsequently closed in?layered fashion of 0 Vicryl 2-0 Vicryl and gopal.? Silverlon dressings applied.? Patient was then awakened from anesthesia transported onto the hospital bed and taken to PACU in stable condition.? Patient tolerated procedure without complications. Disposition: Patient taken to PACU in stable condition.? Postoperatively,? Patient to receive appropriate discharge instructions as well as pain medication DVT prophylaxis postoperatively.? Patient will be allowed weightbearing as tolerated?Left?lower extremity.? Will receive appropriate postoperative antibiotics, PT/OT.? Patient to follow-up in the orthopedic office in 2 weeks.? Patients family understands and agrees with current plan.? All questions answered.
--- NOTE | 2023-10-02 15:21 | XR_ITS ---
WS: [id number] Left hip, 2 views, AP pelvis, 10/02/2023 Clinical Data: Left hip fx ORIF Comparison: Left hip, 10/01/2023 Findings: There is internal fixation of the left hip intertrochanteric fracture with an oblique hip nail and pr oximal left intertrochanteric mamta. Subcutaneous surgical gopal are seen adjacent to the operative s ite. The pelvis and right hip are not remarkable. Impression: Internal fixation of left hip intertrochanteric hip fracture.
--- NOTE | 2023-10-02 15:52 | PM.PACU ---
PACU note Narrative: Patient is a 72-year-old female had left intertrochanteric hip fracture that was surgically repaired with a troch nail. Pt transferred to PACU in stable condition. Dressing is dry. pt is awake and alert. pt can wiggle toes and plantarflex and dorsiflex foot. Unable to assess straightleg raise and sensation to foot due to residual spinal anesthetic. Distal pulses are palpable toes are warm and well-perfused. Pain is controlled. Exam: somnolent, arousable Disposition: back to floor
[2023-10-02] MEDS: oxyCODONE 5 mg IR Tab/Cap PO (17:23)
[2023-10-02] MEDS: iron polysaccharide complex 150 mg Capsule PO (17:23)
[2023-10-02] MEDS: mupirocin oint 22 gm 1 APPLIC NASAL (17:23)
[2023-10-02] MEDS: calcium carb-vit d 600mg/400unit 1 Tablet 1 EACH PO (17:23)
[2023-10-02] MEDS: docusate sodium 100 mg Capsule PO (17:23)
[2023-10-02] MEDS: ketorolac 30 mg/mL INJ 15 MG IVP (17:24)
[2023-10-02] MEDS: chlorhexidine gluconate 0.12% Btl 473 mL 30 ML MUCOUS MEM ×2 (17:27→20:33)
--- NOTE | 2023-10-02 17:36 | ANE.PACU2 ---
Inpatient post-anesthesia follow up: Airway intact: Yes Vital signs: Temperature 97 F Pulse Rate 53 Respiratory Rate 16 Blood Pressure 138/65 Pulse Oximetry 100 Oxygen Delivery Me thod Simple Mask Oxygen Flow Rate 6 Fraction of Inspir ed Oxygen Hydration adequate: Yes Nausea and vomiting: No Pain level: 2 Mental status: Baseline
[2023-10-02] MEDS: tranexamic acid 1,000 MG/100 ML PREMIX 600 MG IV (20:17)
[2023-10-02] MEDS: TRAMadol 50 mg Tablet PO (20:34)
[2023-10-03] VITALS (10 sets, daily range): BP systolic 102–170; BP diastolic 48–65; PULSE 51–70; RESP 14–18; TEMP 36.4–37; O2SAT 93–98
[2023-10-03] MEDS: oxyCODONE 5 mg IR Tab/Cap PO ×4 (01:21→20:21)
[2023-10-03] MEDS: enoxaparin 30 mg/0.3 mL Syringe SUBCUT (03:15)
[2023-10-03] MEDS: ketorolac 30 mg/mL INJ 15 MG IVP ×3 (03:19→23:16)
[2023-10-03 05:53] LABS: Basophils % 0.1 %; Hematocrit 26.9 % (36-47); Lymphocytes # 0.9 10^3/uL (0.8-4.8); Lymphocytes % 6.6 %; Mean Corpuscular HGB Conc 33.1 g/dL (30-55); Mean Corpuscular Volume 102.7 fl (85-98); Mean Platelet Volume 9.5 fL (7.4-10.4); Monocytes # 0.9 10^3/uL (0.2-0.9); Monocytes % 6.8 %; Neutrophils # 11.19 10^3/uL (1.8-7.7); Nucleated Red Blood Cells % 0 %; Platelet Count 198 10^3/cmm (157-399); Red Blood Count 2.62 10^6/uL (3.85-5.65); Red Cell Distribution Width 13.2 % (12.1-15.1); White Blood Count 13.01 10^3/uL (3.29-11.43)
[2023-10-03 06:17] LABS: Alanine Aminotransferase 11 U/L (0-33); Albumin Level 3.3 g/dL (3.5-5.2); Alkaline Phosphatase 93 U/L (35-105); Anion Gap 11.7 (5-19); Aspartate Amino Transferase 12 U/L (0-32); Blood Urea Nitrogen 17 mg/dL (8-23); Calcium 8.2 mg/dL (8.5-10.5); Carbon Dioxide 24 mmol/L (22-29); Chloride 101 mmol/L (98-107); Globulin 1.7 g/dL (1.3-4.6); Glucose 187 mg/dL (65-115); Osmolality Calculated 280 mOsm/kg (285-295); Potassium 4.7 mmol/L (3.5-5.1); Sodium 132 mmol/L (136-145); Total Bilirubin 0.4 mg/dL (0.15-1.2)
[2023-10-03] MEDS: TRAMadol 50 mg Tablet PO ×3 (06:45→23:15)
[2023-10-03] MEDS: ceFAZolin 2,000 MG in sodium chloride 0.9% (plus) 50 ML 100 MG IV ×2 (06:46→13:00)
[2023-10-03] MEDS: cyclobenzaprine 10 mg Tablet 5 MG PO (07:04)
[2023-10-03] MEDS: docusate sodium 100 mg Capsule PO ×2 (08:55→16:51)
[2023-10-03] MEDS: multivitamin therapeutic Tablet 1 TAB PO (08:55)
[2023-10-03] MEDS: iron polysaccharide complex 150 mg Capsule PO ×2 (08:55→16:51)
[2023-10-03] MEDS: calcium carb-vit d 600mg/400unit 1 Tablet 1 EACH PO ×2 (08:55→16:52)
[2023-10-03] MEDS: chlorhexidine gluconate 0.12% Btl 473 mL 30 ML MUCOUS MEM (09:01)
[2023-10-03] MEDS: mupirocin oint 22 gm 1 APPLIC NASAL (09:01)
--- NOTE | 2023-10-03 10:43 | PM.PN ---
Subjective Subjective: Patient worked some with therapy this morning. She is having expected pain and is satisfied with pain regimen. Baez catheter removed. No bowel movement yet. She is eager to go home. Denies fevers, chills, or nausea. Medications: Reviewed: Yes Vitals/I&O/Wt Last Vital Signs Temp 97.9 F 10/03/23 07:34 Pulse 70 10/03/23 07:34 Resp 16 10/03/23 08:55 BP 125/49 10/03/23 07:34 Pulse Ox 95 10/03/23 08:55 O2 Del Method Room Air 10/03/23 07:34 O2 Flow Rate 6 10/02/23 16:30 10/02/23 10/03/23 10/03/23 22:59 06:59 14:59 Intake Total 1058 / 1208 400 / 1608 290 / 290 Output Total 725 / 725 700 / 1425 Balance 333 / 483 -300 / 183 290 / 290 Weight last 48 hrs Weight 50.802 kg Physical Exam Narrative: General: Patient is awake and alert. Head: Normocephalic. Atraumatic. EOM intact. Neck: No JVD. Cardiovascular: RRR. No gallops. No murmurs. No peripheral edema. Lungs: Clear to auscultation, no use of accessory muscles, no crackles or wheezes. Skin: No jaundice. No rashes. Abdomen: Normal bowel sounds, abdomen soft and nontender. Extremities: No cyanosis or clubbing. Neurological: Moves all 4 extremities. No myoclonus. Urinary Catheter Management: 2-way Urethral: Cath Placed During This Visit: yes, but has since been removed by the nurse Reason for Continuing Indwelling Catheter: Decision to DC Catheter Urinary Catheter Date of Insertion: 10/02/23 Urinary Catheter Time of Insertion: 06:11 Date Urinary Catheter Removed: 10/03/23 Time Urinary Catheter Discontinued: 06:55 Data 10/03/23 05:45 10/03/23 05:45 A&P Assessment and plan (1) Closed fracture of left hip: Status post left?intertrochanteric femur fracture ORIF with cephalomedullary nail on 10/02 Multimodal pain control Continue therapy Monitor hemoglobin, repeat CBC tomorrow (2) Hypertension: BP has improved Continue current meds and monitor response (3) Smoking: Wound benefit from cessation Plan DVT ppx: Lovenox Code: Full Attestations Medical Necessity Statement*: Patient requires ongoing hospitalization for analgesics, therapy, serial labs, possibly transfusion, and supportive care Coding Level of Care Code Acute Code for Chg Fwd Diagnoses Closed fracture of left hip S72.002A Hypertension I10 Smoking F17.200
--- NOTE | 2023-10-03 13:06 | PM.PN ---
Documented by User: Brady Elizondo DO 10/03/23 13:06 Vitals/I&O/Wt Last Vital Signs Temp 97.9 F 10/03/23 11:26 Pulse 58 L 10/03/23 11:26 Resp 18 10/03/23 13:01 BP 102/48 10/03/23 11:26 Pulse Ox 93 10/03/23 11:26 O2 Del Method Room Air 10/03/23 11:26 O2 Flow Rate 6 10/02/23 16:30 10/02/23 10/03/23 10/03/23 22:59 06:59 14:59 Intake Total 1058 / 1208 400 / 1608 650 / 650 Output Total 725 / 725 700 / 1425 Balance 333 / 483 -300 / 183 650 / 650 Weight last 48 hrs Weight 112 lb Physical Exam Urinary Catheter Management: 2-way Urethral: Cath Placed During This Visit: yes, but has since been removed by the nurse Reason for Continuing Indwelling Catheter: Decision to DC Catheter Urinary Catheter Date of Insertion: 10/02/23 Urinary Catheter Time of Insertion: 06:11 Date Urinary Catheter Removed: 10/03/23 Time Urinary Catheter Discontinued: 06:55 Data 10/03/23 05:45 10/03/23 05:45 A&P Assessment and plan (1) Closed fracture of left hip: (2) Status post fracture of left hip: Coding Level of Care Code Acute Code for Chg Fwd Diagnoses Closed fracture of left hip S72.002A Status post fracture of left hip Z87.81 Documented by User: [email or web address] Jimenez 10/03/23 16:26 Subjective Subjective: Patient is 1 day postop from left hip fracture repaired with troch nail. Patient is doing well today and says her pain has been well controlled. She has been up with physical therapy and has walked in the hallway couple times today. Denies any acute events overnight. Physical Exam Const: COMMON NORMALS: no acute distress and healthy appearing GENERAL APPEARANCE: cooperative HENMT: COMMON NORMALS: atraumatic HEAD & SCALP: normal to inspection and atraumatic Resp: COMMON NORMALS: normal respiratory effort EFFORT & INSPECTION: Yes able to speak in complete sentences and No respiratory distress Extremity: NARRATIVE EXTREMITY EXAM: Left hip left lower extremity- Silverlon dressing is dry and intact on left hip. No swelling or hematoma seen around surgical site. no erythema, warmth or purulent drainage seen. Pedal pulse 2+. pt able to perform straightleg raise with assistance due to pain. Patient can wiggle toes and plantarflex and dorsiflex foot.Toes are warm well perfused with normal cap refill under 2 seconds. Skin: GENERAL SKIN EXAM: dry skin Urinary Catheter Management: 2-way Urethral: Cath Placed During This Visit: yes, but has since been removed by the nurse Data 10/03/23 05:45 10/03/23 05:45 A&P Assessment and plan (1) Closed fracture of left hip: (2) Status post fracture of left hip: Plan Plan: -Imaging and Labs reviewed -Hospitalist on board for medical management. -DVT prophylaxis -weightbear as tolerated on left leg -PT -Pain control -2 week postop appt at Orthopedic clinic Attestations Medical Necessity Statement*: Ongoing care for Left intertrochanteric hip fracture Coding Level of Care Code Acute Code for Chg Fwd Diagnoses Closed fracture of left hip S72.002A Status post fracture of left hip Z87.81
[2023-10-03] MEDS: baclofen 10 mg Tablet PO (13:49)
[2023-10-03] MEDS: methocarbamol 500 mg Tablet PO (20:22)
[2023-10-03 20:31] LABS: Glucose Point of Care 168 mg/dL (70-110)
--- NOTE | 2023-10-03 21:28 | PC.NURSE ---
When reassessing patient's pain, patient rates it at a 7/10. Patient states this is a tolerable level for her. Patient educated to let nurse know if pain becomes intolerable.
[2023-10-04] MEDS: enoxaparin 30 mg/0.3 mL Syringe SUBCUT (02:20)
[2023-10-04] MEDS: methocarbamol 500 mg Tablet PO (02:21)
[2023-10-04] MEDS: TRAMadol 50 mg Tablet PO ×3 (03:26→14:02)
[2023-10-04 03:48] VITALS: BP 164/68; PULSE 52; RESP 16; TEMP 36.7; O2SAT 93
[2023-10-04 05:43] VITALS: RESP 16
[2023-10-04] MEDS: oxyCODONE 5 mg IR Tab/Cap PO ×2 (05:43→11:49)
[2023-10-04 06:51] LABS: Eosinophils # 0.1 10^3/uL (0.0-0.8); Eosinophils % 1.4 %; Hematocrit 26.1 % (36-47); Lymphocytes # 2.1 10^3/uL (0.8-4.8); Mean Corpuscular HGB Conc 32.6 g/dL (30-55); Mean Corpuscular Hemoglobin 33.7 pg (27-33); Mean Corpuscular Volume 103.6 fl (85-98); Mean Platelet Volume 9.5 fL (7.4-10.4); Monocytes % 9.5 %; Neutrophils % 68.7 %; Nucleated Red Blood Cells % 0 %; Platelet Count 235 10^3/cmm (157-399); Red Blood Count 2.52 10^6/uL (3.85-5.65); Red Cell Distribution Width 13.2 % (12.1-15.1); White Blood Count 10.32 10^3/uL (3.29-11.43)
[2023-10-04 07:16] LABS: Anion Gap 10.7 (5-19); Blood Urea Nitrogen 24 mg/dL (8-23); Calcium 9.1 mg/dL (8.5-10.5); Carbon Dioxide 28 mmol/L (22-29); Chloride 105 mmol/L (98-107); Glucose 84 mg/dL (65-115); Osmolality Calculated 291 mOsm/kg (285-295); Potassium 4.7 mmol/L (3.5-5.1); Sodium 139 mmol/L (136-145)
[2023-10-04 07:27] VITALS: BP 150/60; PULSE 57; RESP 16; TEMP 36.5; O2SAT 95
[2023-10-04] MEDS: multivitamin therapeutic Tablet 1 TAB PO (09:01)
[2023-10-04] MEDS: iron polysaccharide complex 150 mg Capsule PO (09:02)
[2023-10-04] MEDS: docusate sodium 100 mg Capsule PO (09:02)
[2023-10-04] MEDS: calcium carb-vit d 600mg/400unit 1 Tablet 1 EACH PO (09:02)
[2023-10-04] MEDS: chlorhexidine gluconate 0.12% Btl 473 mL 30 ML MUCOUS MEM (09:03)
[2023-10-04] MEDS: mupirocin oint 22 gm 1 APPLIC NASAL (09:04)
--- NOTE | 2023-10-04 09:45 | PC.OT ---
Pt declined OT tx this morning at 9:18 am. Pt had no further questions at this time. Will attempt tx at later time.
[2023-10-04 11:39] VITALS: BP 156/69; PULSE 60; RESP 16; TEMP 37.1; O2SAT 94
[2023-10-04 11:49] VITALS: RESP 14
--- NOTE | 2023-10-04 12:19 | PM.PN ---
Subjective Subjective: Patient seen and examined today she is doing well no issues she has been progressing well with therapy she states she feels she is ready for discharge today hemoglobin at this point stable dressings clean dry and intact. Vitals/I&O/Wt Last Vital Signs Temp 98.8 F 10/04/23 11:39 Pulse 60 10/04/23 11:39 Resp 14 10/04/23 11:49 BP 156/69 10/04/23 11:39 Pulse Ox 94 10/04/23 11:39 O2 Del Method Room Air 10/04/23 11:39 O2 Flow Rate 6 10/02/23 16:30 10/03/23 10/04/23 10/04/23 22:59 06:59 14:59 Intake Total 480 / 1180 240 / 240 Balance 480 / 1180 240 / 240 Physical Exam Const: COMMON NORMALS: no acute distress and healthy appearing GENERAL APPEARANCE: cooperative HENMT: COMMON NORMALS: atraumatic HEAD & SCALP: normal to inspection and atraumatic Resp: COMMON NORMALS: normal respiratory effort EFFORT & INSPECTION: Yes able to speak in complete sentences and No respiratory distress Extremity: NARRATIVE EXTREMITY EXAM: Left hip left lower extremity- Silverlon dressing is dry and intact on left hip. No swelling or hematoma seen around surgical site. no erythema, warmth or purulent drainage seen. Pedal pulse 2+. Patient can wiggle toes and plantarflex and dorsiflex foot.Toes are warm well perfused with normal cap refill under 2 seconds. Skin: GENERAL SKIN EXAM: dry skin Urinary Catheter Management: 2-way Urethral: Cath Placed During This Visit: yes, but has since been removed by the nurse Reason for Continuing Indwelling Catheter: Decision to DC Catheter Urinary Catheter Date of Insertion: 10/02/23 Urinary Catheter Time of Insertion: 06:11 Date Urinary Catheter Removed: 10/03/23 Time Urinary Catheter Discontinued: 06:55 Data 10/04/23 06:31 10/04/23 06:31 Xray Ortho: My impression: X-rays demonstrate stable open reduction internal fixation left intertrochanteric femur fracture with a cephalomedullary nail in stable reduction position. Satisfactory tip apex distance A&P Assessment and plan (1) Closed fracture of left hip: (2) Status post fracture of left hip: Plan Plan: -Imaging and Labs reviewed -Hospitalist on board for medical management. -DVT prophylaxis -weightbear as tolerated on left leg -PT -Pain control -2 week postop appt at Orthopedic clinic Patient stable for discharge from orthopedic standpoint orthopedic surgery team will sign off patient at this time follow peripherally. Presented questions pertaining patient care for free to contact orthopedics on-call. Attestations Medical Necessity Statement*: Status post left hip ORIF ongoing care Coding Level of Care Code Acute Code for Chg Fwd Diagnoses Closed fracture of left hip S72.002A Status post fracture of left hip Z87.81 Time Spent (min) 20
--- NOTE | 2023-10-04 12:33 | PM.DCS ---
Discharge Providers Date of Admission: 10/01/23 21:11 Date of Discharge: October 04, 2023 Attending Provider at Admission: Anthony Diaz Attending Provider at Discharge: Jarrod Santoyo MD Consults: Orthopedics Primary Care Provider: Abiodun Joiner DO Diagnoses at Discharge Discharge Diagnosis (1) Closed fracture of left hip: Status: Acute (2) Status post fracture of left hip: Status: Acute Reason for Visit Reason for Visit: Fall Hip Pain Hospital Course Hospital Course Milana Henning is a 73-year-old female with a past medical history significant for hypertension and tobacco use disorder who presented with left hip pain secondary to fall, found to have left intertrochanteric hip fracture. Orthopedics consulted and patient underwent left?intertrochanteric femur fracture ORIF with cephalomedullary nail. She was found to have post-op acute blood loss anemia but did not require a transfusion. She worked well with therapy and was discharged to home in stable condition. She is to follow up with her PCP and orthopedic clinic for continued care. Physical Exam Narrative: General: Patient is awake and alert. Pleasant. Head:? Normocephalic. Atraumatic. EOM intact. Neck: No JVD. Cardiovascular: RRR. No gallops. No murmurs. No peripheral edema. Lungs: Clear to auscultation, no use of accessory muscles, no crackles or wheezes. Skin: No jaundice. No rashes. Abdomen: Normal bowel sounds, abdomen soft and nontender. Extremities: No cyanosis or clubbing. ? Neurological: Moves all 4 extremities. No myoclonus. Urinary Catheter Management: 2-way Urethral: Cath Placed During This Visit: yes, but has since been removed by the nurse Reason for Continuing Indwelling Catheter: Decision to DC Catheter Urinary Catheter Date of Insertion: 10/02/23 Urinary Catheter Time of Insertion: 06:11 Date Urinary Catheter Removed: 10/03/23 Time Urinary Catheter Discontinued: 06:55 Discharge Data Studies Completed and Pending Completed Studies During Hospitalization Category Date Time Status CXRP [XR chest 1V portable [id number]] Stat Exams 10/01/23 20:35 Completed XR hip LT 2-3V wo/w pel* [id number] Routine Exams 10/02/23 15:21 Completed XR hip LT 2-3V wo/w pel* [id number] Stat Exams 10/01/23 20:35 Completed Pending at discharge Category Date Time Status C-arm Fluoroscopy [id number] Routine Exams 10/02/23 12:46 Taken Basic Metabolic Panel AM LABS Lab 10/05/23 04:00 Ordered Complete Blood Count w/Auto AM LABS Lab 10/05/23 04:00 Ordered Radiology Impressions Chest X-Ray 10/01/23 20:35 IMPRESSION: No acute findings. Laboratory Results WBC 10.32 10^3/uL (3.29-11.43) 10/04/23 06:31 RBC 2.52 10^6/uL (3.85-5.65) L 10/04/23 06:31 Hgb 8.50 g/dL (11.27-16.99) L 10/04/23 06:31 Hct 26.1 % (36-47) L 10/04/23 06:31 MCV 103.6 fl (85-98) H 10/04/23 06:31 MCH 33.7 pg (27-33) H 10/04/23 06:31 MCHC 32.6 g/dL (30-55) 10/04/23 06:31 RDW 13.2 % (12.1-15.1) 10/04/23 06:31 Plt Count 235 10^3/cmm (157-399) 10/04/23 06:31 MPV 9.5 fL (7.4-10.4) 10/04/23 06:31 Neut % (Auto) 68.7 % 10/04/23 06:31 Lymph % (Auto) 20.0 % 10/04/23 06:31 [place] % (Auto) 9.5 % 10/04/23 06:31 Eos % (Auto) 1.4 % 10/04/23 06:31 Baso % (Auto) 0.0 % 10/04/23 06:31 Neut # (Auto) 7.10 10^3/uL (1.8-7.7) 10/04/23 06:31 Lymph # (Auto) 2.1 10^3/uL (0.8-4.8) 10/04/23 06:31 [place] # (Auto) 1.0 10^3/uL (0.2-0.9) H 10/04/23 06:31 Eos # (Auto) 0.1 10^3/uL (0.0-0.8) 10/04/23 06:31 Baso # (Auto) 0.0 10^3/uL (0.0-0.1) 10/04/23 06:31 Nucleated RBC % (auto) 0 % 10/04/23 06:31 Nucleated RBCs # 0.0 /100WBC 10/04/23 06:31 PT 15.00 SECONDS (12.1-14.9) H 10/01/23 20:45 INR 1.14 (0.8-1.2) 10/01/23 20:45 Sodium 139 mmol/L (136-145) 10/04/23 06:31 Potassium 4.7 mmol/L (3.5-5.1) 10/04/23 06:31 Chloride 105 mmol/L (98-107) 10/04/23 06:31 Carbon Dioxide 28 mmol/L (22-29) 10/04/23 06:31 Anion Gap 10.7 (5-19) 10/04/23 06:31 BUN 24 mg/dL (8-23) H 10/04/23 06:31 Creatinine 1.0 mg/dL (0.5-0.9) H 10/04/23 06:31 GFR Calculation Not Reportable 10/04/23 06:31 Glucose 84 mg/dL (65-115) 10/04/23 06:31 POC Glucose 168 mg/dL (70-110) H 10/03/23 20:22 Calculated Osmolality 291 mOsm/kg (285-295) 10/04/23 06:31 Calcium 9.1 mg/dL (8.5-10.5) 10/04/23 06:31 Total Bilirubin 0.4 mg/dL (0.15-1.2) 10/03/23 05:45 AST 12 U/L (0-32) 10/03/23 05:45 ALT 11 U/L (0-33) 10/03/23 05:45 Alkaline Phosphatase 93 U/L (35-105) 10/03/23 05:45 Total Protein 5.0 g/dL (6.6-8.7) L 10/03/23 05:45 Albumin 3.3 g/dL (3.5-5.2) L 10/03/23 05:45 Globulin 1.7 g/dL (1.3-4.6) 10/03/23 05:45 Blood Type A Negative 10/02/23 18:40 Rho(D) Type Negative 10/02/23 18:40 Antibody Screen Negative 10/02/23 18:40 Procedures Performed Left?intertrochanteric femur fracture ORIF with cephalomedullary nail Vitals Last Vital Signs Temp 98.8 F 10/04/23 11:39 Pulse 60 10/04/23 11:39 Resp 14 10/04/23 11:49 BP 156/69 10/04/23 11:39 Pulse Ox 94 10/04/23 11:39 O2 Del Method Room Air 10/04/23 11:39 O2 Flow Rate 6 10/02/23 16:30 Discharge Plan Discharge Patient Disposition: Home Health Service Condition: Stable Prescriptions: New Lovenox 30 mg/0.3 mL syringe 30 mg SUBCUT DAILY Qty: 9 0RF ondansetron 4 mg tablet,disintegrating 4 mg PO Q8H PRN (Reason: nausea and vomiting) 3 Days Qty: 9 0RF methocarbamol 500 mg tablet 500 mg PO Q8H PRN (Reason: muscle spasms) Qty: 30 0RF oxycodone 5 mg tablet 5 mg PO Q6H PRN (Reason: pain postop) 7 Days Qty: 28 0RF cyclobenzaprine 10 mg tablet 10 mg PO TID PRN (Reason: muscle spasm) Qty: 90 0RF tramadol 50 mg tablet 50 mg PO TID PRN (Reason: pain (scale score 4-6)) 7 Days Qty: 21 0RF Continued acetaminophen-codeine 300-15 mg tablet 1 tab PO TID PRN (Reason: pain) Qty: 90 1RF lisinopril-hydrochlorothiazide 20-12.5 mg tablet 1 tab PO DAILY Qty: 90 3RF Discharge Orders: Discharge Order (Routine); Ordered 10/04/23 Ordered By: Jarrod Santoyo Other Ambulatory Orders: DME: Walker (Order) Location: None Selected Ordered By: Jarrod Santoyo Referrals: [facility] [Outside] [facility] ([facility]) [Outside] Brady Elizondo, [Physician] - (We have notified your physician's clinic of the need for a follow-up appointment to be scheduled. If you have not heard from them within the next 2 business days, please call them directly. You may also reach out to our merchandise flow manager at [phone] and she can assist you.) Abiodun Joiner, DO [Primary Care Provider] - 4-7 days (We have notified your physician's clinic of the need for a follow-up appointment to be scheduled. If you have not heard from them within the next 2 business days, please call them directly. You may also reach out to our merchandise flow manager at [phone] and she can assist you.) Discharge Diet: Regular Discharge Activity: Increase activity as tolerated, Use walker/crutches as instructed and As per PT/OT instructions Patient Instructions: Oxycodone/Acetaminophen (By mouth), Cyclobenzaprine (By mouth) (Flexeril, Amrix, Fexmid, FusePaq Tabradol), Methocarbamol (By mouth), Tramadol (By mouth), Enoxaparin (By injection) (Lovenox), Total Hip Replacement (DC), Opioid Safety Activity Restrictions/Additional Instructions: Orthopedic discharge instructions: Patient may be weightbearing as tolerated left lower extremity Encourage hip and knee range of motion as tolerated Change dressing as needed should leave the Silverlon bandage dressing on in place for 7 days after that may remove clean incision with warm soapy water pat dry and redress with a dry dressing Ice and elevate as needed for pain and swelling Take pain medication as prescribed Take antinausea medication as needed Supplement with Citracal vitamin D for bone health and healing DVT prophylaxis?Lovenox as prescribed Follow-up with the orthopedic office in 2 weeks for recheck and x-rays Contact the office for any questions or concerns Discharge Attestations Time Spent in Discharge Care*: greater than 30 min Quality Metrics Clinical Quality Measures [ No reported AMI, CVA or VTE this stay] Coding Level of Care Code Acute Code for Chg Fwd Diagnoses Closed fracture of left hip S72.002A Status post fracture of left hip Z87.81
--- NOTE | 2023-10-04 13:21 | PC.SOCIAL ---
Pg 2 IMM Explained to pt Pg 2 IMM. No questions voiced. Provided pt a copy. Initialed, dated, & timed a copy & placed in chart.
[2023-10-04 14:08] VITALS: RESP 14
== END 2023-10-04 14:09 | disposition home or self-care (01) | DRG 481 ==
LOC: ER 21:08 → MEDSURG 21:11
PROVIDERS: Student in an Organized Health Care Education/Training Program; Admitting Provider Internal Medicine; Emergency Provider Emergency Medicine; PCP Family Medicine; Visit Provider Internal Medicine
PROC: 0QH736Z Insertion of Intramedullary Internal Fixation Device into Left Upper Femur, Percutaneous Approach (ICD-10-PCS; CPT 27245; principal; 2023-10-02 14:05)
DX: S72.142A Displaced intertrochanteric fracture of left femur, initial encounter for closed fracture (principal); D62 Acute posthemorrhagic anemia; N17.9 Acute kidney failure, unspecified; W10.9XXA Fall (on) (from) unspecified stairs and steps, initial encounter; I10 Essential (primary) hypertension; F17.210 Nicotine dependence, cigarettes, uncomplicated
CPT/HCPCS: 36415; 36416; 51702; 71045; 73502; 76000; 80048; 80053; 82962; 85025; 85610; 86850; 86900; 93005; 96372; 96374; 96375; 96376; 97116; 97161; 97165; 97530; 99285; C1713; C1776; J0131; J0360; J0690; J1100; J1170; J1200; J1644; J1650; J1885; J2270; J2405; J2704; J2795; J3010; J7030

== ENCOUNTER → 2023-10-25 09:19 | Outpatient (BNVA) | payer MEDICARE, SELFPAY | PROVIDERS: PCP Family Medicine; Visit Provider Physician Assistant | DX: M25.552 Pain in left hip (principal); Z87.81 Personal history of (healed) traumatic fracture | CPT/HCPCS: 73502; 99024 ==

== ENCOUNTER → 2023-11-26 14:56 | Outpatient (BNVA) | payer MEDICARE, SELFPAY | PROVIDERS: PCP Family Medicine; Visit Provider Physician Assistant | DX: Z87.81 Personal history of (healed) traumatic fracture (principal) | CPT/HCPCS: 99024; 99213 ==

== ENCOUNTER → 2024-03-26 11:17 | Outpatient (BNVA) | payer MEDICARE, SELFPAY | PROVIDERS: PCP Family Medicine; Visit Provider Student in an Organized Health Care Education/Training Program | DX: Z87.81 Personal history of (healed) traumatic fracture (principal) | CPT/HCPCS: 73502; 99213 ==

== ENCOUNTER 2024-08-04 15:49 | Inpatient (IN) | payer MEDICARE, SELFPAY ==
[2024-08-04 15:53] VITALS: BP 197/116; PULSE 79; RESP 15; TEMP 37.8; O2SAT 92; BMI 17.2
--- NOTE | 2024-08-04 16:06 | CTR_ITS ---
PROCEDURE INFORMATION: Exam: CT Head Without Contrast Exam date and time: 08/04/2024 4:29 PM Age: 74 years old Clinical indication: Altered mental status/memory loss; Additional info: AMS TECHNIQUE: Imaging protocol: Computed tomography of the head without contrast. Radiation optimization: All CT scans at this facility use at least one of these dose optimization techniques: automated exposure control; mA and/or kV adjustment per patient size (includes targeted exams where dose is matched to clinical indication); or iterative reconstruction. COMPARISON: No relevant prior studies available. RADIATION DOSE METRICS: Total DLP (mGy-cm): 1375 FINDINGS: Limitations: Motion artifact on exam which limits fine detailed evaluation of the brain parenchyma. Brain: No hemorrhage. No edema. Mild diffuse cerebral atrophy and sequela of chronic small vessel ischemic disease. No mass effect. Cerebral ventricles: No ventriculomegaly. Paranasal sinuses: Visualized sinuses are unremarkable. No fluid levels. Mastoid air cells: Visualized mastoid air cells are well aerated. Bones: Unremarkable. No acute fracture. Soft tissues: Unremarkable. CT/CT head wo con* [id number] IMPRESSION: No acute intracranial abnormality.
--- NOTE | 2024-08-04 16:09 | ECG_ITS ---
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 Measurements Intervals [place] Rate: 82 P: 69 MD: 148 QRS: 41 QRSD: 100 T: 38 QT: 284 QTc: 334 Interpretive Statements SINUS RHYTHM LEFT VENTRICULAR HYPERTROPHY AND ST-T CHANGE [VOLTAGE CRITERIA PLUS ST/T ABNORMALITY] Compared to ECG 10/02/2023 02:09:52 Left ventricular hypertrophy now present ST (T wave) deviation now present Electronically Signed On 08-04-2024 21:39:35 CDT by Konstantin Evans M.D. [email or web address]
--- NOTE | 2024-08-04 16:27 | XRR_ITS ---
PROCEDURE INFORMATION: Exam: XR Chest Exam date and time: 08/04/2024 4:38 PM Age: 74 years old Clinical indication: Cough; Additional info: Dyspnea/cough TECHNIQUE: Imaging protocol: Radiologic exam of the chest. Views: 1 view. COMPARISON: CR XR chest 1V portable [id number] 10/01/2023 8:53 PM FINDINGS: Lungs: Calcified granulomas noted in the left mid and lower lung. Hyperinflated lungs. Increased interstitial lung markings suggestive of scarring. No consolidation. Pleural spaces: Unremarkable. No pleural effusion. No pneumothorax. Heart/Mediastinum: Unremarkable. No cardiomegaly. Bones/joints: Unremarkable. XR/XR chest 1V portable [id number] IMPRESSION: No acute findings.
[2024-08-04 16:46] LABS: ABG PCO2 39.3 mmHg (35-45); ABG PH Result 7.46 (7.35-7.45); Alveolar-Arterial Oxygen Gradi 5.8 mmHg (5-10); Arterial Blood Gas Hematocrit 39.2 % (37-47); Base Excess ABG 3.8 mmol/L (-2.0-2.0); Blood Gas Allen Test Pos; Blood Gas Operator Identificat CAK; Blood Gas Sample Site Radial, left; Blood Gas Sample Type Arterial; Carboxyhemoglobin 0.8 %THgb (0.4-20.1); HCO3 ABG 27.9 mmol/L (22-26); HGB O2 Sat 88.7 % (95-100); Ionized Calcium Level - ABG 1.2 mmol/L (1.1-1.4); Oxygen Device ROOM AIR; Oxygen Saturation ABG 90.4; PO2 ABG 56.5 mmHg (80.0-100.0); PO2 FiO2 Ratio Arterial Blood 269; Potassium Level - ABG 2.7 mmol/L (3.5-5.0); Total Hemoglobin 12.8 g/dL (12-16)
--- NOTE | 2024-08-04 17:01 | ED_ITS ---
HPI - Altered Mental Status 2 General: Chief Complaint: Altered Mental Status Stated Complaint: LOC, Fever Time Seen by Provider: 08/04/24 16:00 History of Present Illness: 74-year-old female presents emergency ro om via EMS for altered mental status that began earlier today. She has not been able to walk she progressively been more more altered. states the last time she seemed her normal self was about 3 days ago. She had Tmax at home was up to 102. As she began to get ill her states he did ask about what she was bothering her. Went through review of systems with him see documented below she not complain of any chest or abdominal pain or shortness of breath no headache she is generally felt did not feel well. No vomiting or diarrhea. 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 Patient will respond to verbal questioning but does not provide any specific answers. Related Data Previous Rx's Medication Instructions Recorded lisinopril 20 1 tab PO DAILY #90 tabs 08/19/23 mg-hydrochlorothiazide 12.5 mg tablet cyclobenzaprine 10 mg tablet 10 mg PO TID PRN muscle spasm #45 11/05/23 tabs BEATRIZ HOSE LEFT #1 ea 11/26/23 gabapentin 300 mg capsule 300 mg PO DAILY PRN restless legs, 05/11/24 neuropathy #90 caps silver sulfadiazine 1 % topical 1 applic topical DAILY wound #50 05/11/24 cream (Silvadene) grams scopolamine base 1 mg over 3 days 1 patch transdermal Q72H PRN 05/21/24 transdermal patch nausea and vomiting/sea sickness #10 ea acetaminophen 300 mg-codeine 15 mg 1 tab PO TID PRN pain #90 tabs 07/13/24 tablet Allergies Allergy/AdvReac Type Severity Reaction Status Date / Time No Known Allergies Allergy Verified 05/11/24 08:34 Review of Systems 2 Const: Reports: fever(s) and malaise Card: Denies: chest pain Resp: Denies: dyspnea, productive cough or non-productive cough GI: Denies: abdominal pain, nausea or vomiting Neuro: Reports: difficulty walking and confusion PFSH ED 2 PFSH: Medical History Hypertension Status post fracture of left hip Smoking Family History Other No significant family history Social History Smoking and tobacco/nicotine status: current some day tobacco/nicotine user Alcohol intake: current Alcohol intake frequency: holidays/special occasions only Lives independently: Yes Household members: spouse Marital status: Physical Exam 2 Const: GENERAL APPEARANCE: cooperative and comfortable O RIENTATION/CONSCIOUSNESS: Yes awake and Yes confused OTHER: Will respond to verbal stimuli but does not give appropriate answers HENMT: COMMON NORMALS: normocephalic, atraumatic and hearing grossly normal bilaterally HEAD & SCALP: normocephalic and atraumatic Resp: COMMON NORMALS: normal respiratory effort, No retractions, No use of accessory muscles and clear to auscultation bilaterally AUSCULTATION: clear to auscultation bilaterally Cardio: COMMON NORMALS: regular rate, regular rhythm and No murmurs present (Cardio) RATE: regular rate RHYTHM: regular rhythm GI: COMMON NORMALS: Soft to palpation and No hepatosplenomegaly present A USCULTATION: Yes normoactive bowel sounds PALPATION: Yes Soft to palpation, No Tenderness to palpation present (GI), No Guarding due to palpation present (GI) and Yes No hepatosplenomegaly present Extremity: COMMON NORMALS: normal to inspection, capillary refill normal, no clubbing, cyanosis or edema, no calf tenderness and no pedal edema Neuro: OTHER: Mild right-sided facial droop, no other focal neurologic deficits are noted Skin: COMMON NORMALS: no rashes or lesions noted GENERAL SKIN EXAM: no rashes or lesions noted Course 2 Vital Signs: Vital signs: Vital Signs Temperature 98.7 F 08/05/24 04:00 Pulse Rate 71 08/05/24 04:00 Respiratory Rate 17 08/05/24 04:00 Blood Pressure 106/74 08/05/24 04:00 Pulse Oximetry 99 08/05/24 04:00 Oxygen Delivery Me thod Nasal Cannula 08/05/24 04:00 Oxygen Flow Rate 2 08/05/24 04:00 MDM - Altered Mental Status Medical Decision Making Patient encephalopathic likely from infection patient is leukocytosis UA shows signs of infection. There is a prescription for scopolamine patch however family does not think she has been using it. Examiner specifically looking for it could not find that there was one on there is no evidence of any adhesive recently having been on the skin in the area behind the ear where these are typically applied. Family tells me they think it was for a trip that she took in May the prescription was written in late April no other medication changes recently. 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 CT of her head did not show anything acute. Chest x-ray also did not show acute findings. CT abdomen pelvis done to further evaluate also no acute findings noted. Family concerned about a small excoriated area in the right groin crease there is no rash or erythema around it we did order a tick panel. Initial EKG shows LVH with some ST depression. First troponin 36-second troponin pending . Patient had not had any reports of chest pain in the few days prior according to her . Creatinine and lactate are normal. Liver functions are slightly elevated and she has some mild hyponatremia as well. Patient was given initial dose of ceftriaxone. Does not need sepsis criteria although believes she does have an infection. He is rather severe. There is no elevation of creatinine bilirubin lactate, there is no thrombocytopenia. She was cultured and given IV antibiotics for her cystitis. She was not given fluids because her blood pressure is quite elevated. Initial blood pressure 197/116 did improve after arrival. Discussed with hospitalist orders written Medical Records I reviewed the patient's medical records. Lab Data I reviewed the patient's lab results. 08/05/24 04:06 08/05/24 04:[address] 08/04/24 16:06 IMPRESSION: No acute intracranial abnormality. Chest X-Ray 08/04/24 16:27 IMPRESSION: No acute findings. Abdomen/Pelvis CT 08/04/24 17:49 IMPRESSION: 1. No bowel obstruction or inflammatory process associated with the bowel. 2. No free air or significant free fluid in the abdomen or pelvis. 3. The appendix is not visualized but there are no secondary signs of acute appendicitis. 4. No hydronephrosis or renal calculus. No stone in the bladder. Laboratory Results WBC 13.68 10^3/uL (3.29-11.43) H 08/04/24 16:50 RBC 3.89 10^6/uL (3.85-5.65) 08/04/24 16:50 Hgb 12.50 g/dL (11.27-16.99) 08/04/24 16:50 Hct 35.7 % (36-47) L 08/04/24 16:50 MCV 91.8 fl (85-98) 08/04/24 16:50 MCH 32.1 pg (27-33) 08/04/24 16:50 MCHC 35.0 g/dL (30-55) 08/04/24 16:50 RDW 12.7 % (12.1-15.1) 08/04/24 16:50 Plt Count 168 10^3/cmm (157-399) 08/04/24 16:50 MPV 10.8 fL (7.4-10.4) H 08/04/24 16:50 Neut % (Auto) 89.1 % 08/04/24 16:50 Lymph % (Auto) 3.5 % 08/04/24 16:50 [place] % (Auto) 5.6 % 08/04/24 16:50 Eos % (Auto) 0.0 % 08/04/24 16:50 Baso % (Auto) 0.3 % 08/04/24 16:50 Neut # (Auto) 12.19 10^3/uL (1.8-7.7) H 08/04/24 16:50 Lymph # (Auto) 0.5 10^3/uL (0.8-4.8) L 08/04/24 16:50 [place] # (Auto) 0.8 10^3/uL (0.2-0.9) 08/04/24 16:50 Eos # (Auto) 0.0 10^3/uL (0.0-0.8) 08/04/24 16:50 Baso # (Auto) 0.0 10^3/uL (0.0-0.1) 08/04/24 16:50 Nucleated RBC % (auto) 0 % 08/04/24 16:50 Nucleated RBCs # 0.0 /100WBC 08/04/24 16:50 Specimen Type Arterial 08/04/24 16:35 Sample Site Radial, left 08/04/24 16:35 ABG pH 7.46 (7.35-7.45) H 08/04/24 16:35 ABG pCO2 39.3 mmHg (35-45) 08/04/24 16:35 ABG pO2 56.5 mmHg (80.0-100.0) L 08/04/24 16:35 ABG PO2/FiO2 Ratio 269 08/04/24 16:35 ABG HCO3 27.9 mmol/L (22-26) H 08/04/24 16:35 ABG O2 Saturation 90.4 08/04/24 16:35 ABG Base Excess 3.8 mmol/L (-2.0-2.0) H 08/04/24 16:35 David Test Pos 08/04/24 16:35 A-a O2 Gradient 5.8 mmHg (5-10) 08/04/24 16:35 Hematocrit 39.2 % (37-47) 08/04/24 16:35 Hgb O2 Saturation 88.7 % (95-100) L 08/04/24 16:35 Carboxyhemoglobin 0.8 %THgb (0.4-20.1) 08/04/24 16:35 Methemoglobin 1.0 % (0.4-1.5) 08/04/24 16:35 Total Hemoglobin 12.8 g/dL (12-16) 08/04/24 16:35 Sodium 125.0 mmol/L (131-143) L 08/04/24 16:35 Potassium 2.7 mmol/L (3.5-5.0) L 08/04/24 16:35 Glucose 122.0 mg/dL (70-115) H 08/04/24 16:35 Ionized Calcium 1.2 mmol/L (1.1-1.4) 08/04/24 16:35 O2 Delivery Device Room air 08/04/24 16:35 FiO2 21.0 % 08/04/24 16:35 [employer] Laborer ID Cak 08/04/24 16:35 Sodium 126 mmol/L (136-145) L 08/04/24 16:50 Potassium 2.9 mmol/L (3.5-5.1) L 08/04/24 16:50 Chloride 86 mmol/L (98-107) L 08/04/24 16:50 Carbon Dioxide 25 mmol/L (22-29) 08/04/24 16:50 Anion Gap 17.9 (5-19) 08/04/24 16:50 BUN 29 mg/dL (8-23) H 08/04/24 16:50 Creatinine 1.0 mg/dL (0.5-0.9) H 08/04/24 16:50 GFR Calculation Not Reportable 08/04/24 16:50 Glucose 123 mg/dL (65-115) H 08/04/24 16:50 Calculated Osmolality 269 mOsm/kg (285-295) L 08/04/24 16:50 Lactic Acid 1.4 mmol/L (0.5-2.2) 08/04/24 16:50 Calcium 8.8 mg/dL (8.5-10.5) 08/04/24 16:50 Magnesium 1.7 mg/dL (1.7-2.3) 08/04/24 16:50 Total Bilirubin 0.4 mg/dL (0.15-1.2) 08/04/24 16:50 AST 64 U/L (0-32) H 08/04/24 16:50 ALT 40 U/L (0-33) H 08/04/24 16:50 Alkaline Phosphatase 152 U/L (35-105) H 08/04/24 16:50 Troponin T Baseline 36 ng/L (0-10) H 08/04/24 16:50 Total Protein 6.0 g/dL (6.6-8.7) L 08/04/24 16:50 Albumin 3.4 g/dL (3.5-5.2) L 08/04/24 16:50 Globulin 2.6 g/dL (1.3-4.6) 08/04/24 16:50 Lipase 6 U/L (13-60) L 08/04/24 16:50 Vitamin B12 450 pg/mL (232-1245) 08/04/24 16:50 Urine Color Yellow (Yellow) 08/04/24 16:47 Urine Appearance Cloudy (CLEAR) A 08/04/24 16:47 Urine pH 6.0 (5-7) 08/04/24 16:47 Ur Specific [place] 1.019 (1.005-1.030) 08/04/24 16:47 Urine Protein 3+ (Negative) A 08/04/24 16:47 Urine Glucose (UA) Negative (Normal) 08/04/24 16:47 Urine Ketones Trace (Negative) 08/04/24 16:47 Urine Blood 3+ (Negative) A 08/04/24 16:47 Urine Nitrate Negative (Negative) 08/04/24 16:47 Urine Bilirubin Negative (Negative) 08/04/24 16:47 Urine Urobilinogen 1.0 mg/dL (Negative) 08/04/24 16:47 Ur Leukocyte Esterase 2+ (Negative) A 08/04/24 16:47 Urine RBC 6-10 /hpf (0-2) 08/04/24 16:47 Urine WBC >100 /hpf (0-5) H 08/04/24 16:47 Ur Squamous Epith Cells 0-5 /hpf (0-5) 08/04/24 16:47 Amorphous Sediment Not Reportable 08/04/24 16:47 Urine Bacteria Exceeds /hpf (NONE) 08/04/24 16:47 Hyaline Casts 6.17 /lpf 08/04/24 16:47 Coronavirus (PCR) Negative (Negative) 08/04/24 17:07 Influenza A (PCR) Negative (Negative) 08/04/24 17:07 Influenza Type B (PCR) Negative (Negative) 08/04/24 17:07 RSV (PCR) Negative (Negative) 08/04/24 17:07 All radiology interpretation(s) finalized by discharge EKG Data EKG 1: Interpretation: 08/04/2024 1551 initial EKG shows a sinus rhythm rate of 82 with LVH present there is ST depression in V45 and [address] elevation. Left axis deviation. AR interval 148. The LVH and the ST depressions are new compared to EKG from 10/01/2023 Discharge Plan Discharge Patient Disposition: Admitted As Inpatient Admit Provider: Anthony Diaz Clinical Impression: Acute encephalopathy, Hypokalemia, Hyponatremia, Cystitis, Elevated troponin I level Condition: Stable Coding Level of Care Code ED Filing And Polishing Supervisor for Chg Gonzalo
[2024-08-04 17:11] LABS: Basophils % 0.3 %; Hematocrit 35.7 % (36-47); Lymphocytes # 0.5 10^3/uL (0.8-4.8); Lymphocytes % 3.5 %; Mean Corpuscular Hemoglobin 32.1 pg (27-33); Mean Corpuscular Volume 91.8 fl (85-98); Mean Platelet Volume 10.8 fL (7.4-10.4); Monocytes # 0.8 10^3/uL (0.2-0.9); Monocytes % 5.6 %; Neutrophils # 12.19 10^3/uL (1.8-7.7); Neutrophils % 89.1 %; Nucleated Red Blood Cells % 0 %; Platelet Count 168 10^3/cmm (157-399); Red Blood Count 3.89 10^6/uL (3.85-5.65); Red Cell Distribution Width 12.7 % (12.1-15.1); White Blood Count 13.68 10^3/uL (3.29-11.43)
[2024-08-04 17:16] LABS: Bacteria Urine EXCEEDS /hpf; Hyaline Casts Urine 6.17 /lpf; Squamous Epithelial Cell Urine 0-5 /hpf (0-5); WBC Urine >100 /hpf (0-5)
[2024-08-04 17:39] LABS: Troponin(5th) Baseline 36 ng/L (0-10)
[2024-08-04 17:42] LABS: Alanine Aminotransferase 40 U/L (0-33); Albumin Level 3.4 g/dL (3.5-5.2); Alkaline Phosphatase 152 U/L (35-105); Anion Gap 17.9 (5-19); Aspartate Amino Transferase 64 U/L (0-32); Blood Urea Nitrogen 29 mg/dL (8-23); Calcium 8.8 mg/dL (8.5-10.5); Carbon Dioxide 25 mmol/L (22-29); Chloride 86 mmol/L (98-107); Creatinine Clr Calc Pharmacy 35.8777; Globulin 2.6 g/dL (1.3-4.6); Glucose 123 mg/dL (65-115); Lipase 6 U/L (13-60); Magnesium 1.7 mg/dL (1.7-2.3); Osmolality Calculated 269 mOsm/kg (285-295); Sodium 126 mmol/L (136-145); Total Bilirubin 0.4 mg/dL (0.15-1.2)
[2024-08-04 17:44] LABS: Lactic Sepsis W/Reflex 1.4 mmol/L (0.5-2.2)
[2024-08-04 17:46] LABS: Add Urine Microscopic? YES; Bilirubin Urine Negative (Negative); Blood Urine 3+ (Negative); Glucose Urine UA Negative (Normal); Ketones Urine Trace (Negative); Leukocyte Esterase Urine 2+ (Negative); Nitrate Urine Negative (Negative); Protein Urine 3+ (Negative); Specific Gravity, Urine 1.019 (1.005-1.030); Urine Appearance Cloudy (CLEAR); Urine Color Yellow (Yellow)
[2024-08-04 17:47] LABS: Add Urine Culture? Yes
[2024-08-04 17:48] LABS: Potassium 2.9 mmol/L (3.5-5.1)
--- NOTE | 2024-08-04 17:49 | CTR_ITS ---
PROCEDURE INFORMATION: Exam: CT Abdomen And Pelvis Without Contrast Exam date and time: 08/04/2024 6:02 PM Age: 74 years old Clinical indication: Abdominal pain; Additional info: Flank pain TECHNIQUE: Imaging protocol: Computed tomography of the abdomen and pelvis without contrast. Radiation optimization: All CT scans at this facility use at least one of these dose optimization techniques: automated exposure control; mA and/or kV adjustment per patient size (includes targeted exams where dose is matched to clinical indication); or iterative reconstruction. COMPARISON: CR XR hip LT 2-3V wo/w pel* [id number] 03/26/2024 11:22 AM RADIATION DOSE METRICS: Total DLP (mGy-cm): 410 FINDINGS: Coronary arteries: Coronary arterial atherosclerotic calcifications are present. Liver: Normal. No mass. Gallbladder and biliary ducts: Normal. No calcified stones. No ductal dilation. Pancreas: There is marked dilatation of the pancreatic duct with a large calcification in the head of the pancreas which may represent chronic obstruction. Spleen: Normal. No splenomegaly. Adrenal glands: Normal. No mass. Kidneys and ureters: Normal. No hydronephrosis. Stomach and bowel: Unremarkable. No obstruction. No mucosal thickening. Appendix: The appendix is not visualized but there are no secondary signs of acute appendicitis. Intraperitoneal space: Unremarkable. No free air. No significant fluid collection. Vasculature: Unremarkable. No abdominal aortic aneurysm. Lymph nodes: Unremarkable. No enlarged lymph nodes. Urinary bladder: Unremarkable as visualized. Reproductive: Unremarkable as visualized. Bones/joints: There is an intramedullary mamta with a single proximal interlocking screw in the proximal left femur. Soft tissues: Unremarkable. CT/CT kidney stone [id number] IMPRESSION: 1. No bowel obstruction or inflammatory process associated with the bowel. 2. No free air or significant free fluid in the abdomen or pelvis. 3. The appendix is not visualized but there are no secondary signs of acute appendicitis. 4. No hydronephrosis or renal calculus. No stone in the bladder.
--- NOTE | 2024-08-04 18:04 | ECG_ITS ---
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 Measurements Intervals [place] Rate: 78 P: 71 CT: 171 QRS: 41 QRSD: 101 T: 41 QT: 289 QTc: 330 Interpretive Statements SINUS RHYTHM MINIMAL VOLTAGE CRITERIA FOR LVH, CONSIDER NORMAL VARIANT [MEETS CRITERIA IN ONE OF: R(aVL), S(V1), R(V5), R(V5/V6)+S(V1)] NONSPECIFIC ST & T-WAVE ABNORMALITY Compared to ECG 08/04/2024 15:51:23 T-wave abnormality now present ST (T wave) deviation no longer present Electronically Signed On 08-04-2024 21:57:19 CDT by Konstantin Evans M.D. [id number]
[2024-08-04 18:15] LABS: Covid PCR NEGATIVE (Negative); Influenza A NEGATIVE (Negative); Influenza B NEGATIVE (Negative); Respiratory Syncytial Virus Ce NEGATIVE (Negative)
[2024-08-04 18:18] VITALS: BP 163/74; PULSE 79; O2SAT 94
[2024-08-04 18:30] VITALS: BP 166/84; PULSE 81; O2SAT 93
[2024-08-04] MEDS: cefTRIAXone 1,000 mg SDV 1000 MG IVP (18:31)
[2024-08-04] MEDS: potassium chloride premix 100 ML 25 MEQ IV (18:32)
[2024-08-04 19:22] LABS: Troponin 5 2HR 51.98 ng/L (0-10)
[2024-08-04 19:27] LABS: Troponin 5 2HR Delta 15.98 ABS# (0-10)
--- NOTE | 2024-08-04 19:47 | P.HP_ITS ---
Providers/Chief Complaint 2 Admitting Physician: Anthony Diaz Primary Care Provider: Abiodun Joiner DO Chief Complaint: LOC, Fever History of Present Illness 74-year-old lady with history of chronic smoking, hypertension, restless leg syndrome which she had been self treating with gabapentin (prescription of her dog) and tonic water with success, 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 No specific complaints, no shortness of breath, some chronic cough, nothing unusual with her chronic smoking, nausea vomiting diarrhea, no definite rash. Had noticed a small wound with eschar over the right lower quadrant of the abdomen/right groin. She does not have history of dementia. Normally is alert and oriented, works in the garden. Does go outside a lot. Mental status worsened yesterday and this morning, and by the afternoon she has been confused, lethargic, restless, not following directions. In ER she is febrile 100.1. 13.68 WBC. With hypoxemia, pO2 56.5 on room air. With noted cloudy urine with more than 100 WBC. With some transaminitis AST 64, LT 40, alk phos 152. Hyponatremia 126. Potassium of 2.9. Baseline troponin 36. Head CT without acute abnormality. Chest x-ray without acute findings. CT kidney stone protocol pending. Review of Systems 2 General: Reports: ROS unobtainable due to mental status Medications/Allergies Home Medications Medication Instructions Recorded Confirmed Last Taken Type lisinopril 20 1 tab PO DAILY #90 tabs 08/19/23 05/11/24 Unknown Rx mg-hydrochlorothiazide 12.5 mg tablet cyclobenzaprine 10 mg tablet 10 mg PO TID PRN muscle spasm #45 11/05/23 03/26/24 Unknown Rx tabs BEATRIZ HOSE LEFT #1 ea 11/26/23 03/26/24 Unknown Rx gabapentin 300 mg capsule 300 mg PO DAILY PRN restless legs, 05/11/24 05/11/24 Unknown Rx neuropathy #90 caps silver sulfadiazine 1 % topical 1 applic topical DAILY wound #50 05/11/24 05/11/24 Unknown Rx cream (Silvadene) grams scopolamine base 1 mg over 3 days 1 patch transdermal Q72H PRN 05/21/24 Unknown Rx transdermal patch nausea and vomiting/sea sickness #10 ea acetaminophen 300 mg-codeine 15 mg 1 tab PO TID PRN pain #90 tabs 07/13/24 Unknown Rx tablet Allergies Allergy/AdvReac Type Severity Reaction Status Date / Time No Known Allergies Allergy Verified 05/11/24 08:34 PFSH Acute 2 PFSH: Medical History Hypertension Status post fracture of left hip Smoking Family History Other No significant family history Social History (Updated 08/04/24 @ 19:51 by Anthony Diaz MD) Smoking and tobacco/nicotine status: current some day tobacco/nicotine user Alcohol intake: current Alcohol intake frequency: holidays/special occasions only Lives independently: Yes Household members: spouse Marital status: Vitals/I&O/Wt Last Vital Signs Temp 100.1 F H 08/04/24 15:53 Pulse 81 08/04/24 18:30 Resp 15 08/04/24 15:53 BP 166/84 08/04/24 18:30 Pulse Ox 93 08/04/24 18:30 O2 Del Method Room Air 08/04/24 18:30 Weight last 48 hrs Weight 45.359 kg Physical Exam 2 Narrative: Opens eyes, intermittently makes eye contact, otherwise looking around, not following directions. Restless, repeatedly trying to sit up and then laying back down. Family at bedside redirecting her. Incontinent of malodorous urine. Const: COMMON NORMALS: negative for patient oriented x3 GENERAL APPEARANCE: not cooperative ORIENTATION/CONSCIOUSNESS: Yes confused HENMT: COMMON NORMALS: oropharynx normal Neck/C-Spine: COMMON NORMALS: no JVD Resp: COMMON NORMALS: normal respiratory effort and clear to auscultation bilaterally AUSCULTATION: clear to auscultation bilaterally Cardio: COMMON NORMALS: no JVD, regular rhythm, S1 normal heart sound present, S2 normal heart sound present and No murmurs present (Cardio) RHYTHM: regular rhythm HEART SOUNDS: S1 normal heart sound present and S2 normal heart sound present GI: COMMON NORMALS: Normal to inspection, nondistended, normoactive bowel sounds present, Soft to palpation and non-tender PALPATION: Yes Soft to palpation Extremity: COMMON NORMALS: no joint enlargement and no pedal edema Neuro: COMMON NORMALS: moves all extremities Skin: COMMON NORMALS: no rashes or lesions noted NARRATIVE SKIN EXAM: Small ulceration, 4 mm, with eschar at baseline, possible cigarette burn? On the right lower quadrant/right groin. GENERAL SKIN EXAM: no rashes or lesions noted OTHER: No signs of ongoing paronychia or infection on either of the feet. Sepsis: Is patient septic: Yes Focused sepsis exam performed: Yes F ocused sepsis exam: No cyanosis, mottling, good capillary refill. Still with encephalopathy. Date exam was performed: 08/04/24 Time exam was performed: 19:00 Data 08/04/24 16:50 08/04/24 16:50 Micro: Microbiology 08/04/24 16:50 Blood Culture - Preliminary Blood SPECIMEN COLLECTED 08/04/24 16:50 Blood Culture - Preliminary Blood SPECIMEN COLLECTED A&P Assessment and plan (1) Acute encephalopathy: Acute metabolic encephalopathy, possibly secondary to sepsis with complicated urinary tract infection with major comorbidities with sepsis, with encephalopathy with NSTEMI, hypoxemia, cultures collected, started on antibiotic. Discussed with patient family and ER provider possibility of additional etiologies. She does go outdoors, with transaminitis, leukocytosis, hyponatremia, possible tick bites, possible tickborne infection. Tick panel has been sent, follow-up. Doxycycline started empirically as per discussion. Otherwise has not been complaining of headache, no meningeal signs to suggest meningitis or encephalitis. No obvious large collection on CT of the head which is otherwise without acute abnormality. Additional possible toxic encephalopathy, she had previously self treated with gabapentin for restless leg syndrome and also has been taking tonic water. Question of possible anticholinergic syndrome with tonic water, although without dilated pupils, no tremor or rigidity, appears less likely. Possible toxicity from gabapentin? Family are not on sure of exactly how much of each she takes but will try to find out. Requesting to confirm home medications, had been taking muscle relaxers in the past as well as which could be contributing. Hold these medications at current time. Additionally hyponatremia sodium 126, possibly hypovolemic versus teetotaler hyponatremia. Gentle rehydration. Additionally uncontrolled hypertension: Blood pressure as high as 180s-190s systolic. Possible hypertensive encephalopathy? Will give a dose of labetalol 10 mg as unreliable oral intake currently with encephalopathy. Monitor blood pressures. Fall precautions due to fall risk, one-to-one sitter due to climbing out of bed, confusion with delirium. Reorient. So far has not required chemical sedation. With risk of aspiration. Aspiration precautions. N.p.o. at current time. Treat additional underlying causes as below. Per history obtained from her family, she normally is alert and oriented, independent and active. (2) Sepsis: Lactic acid, lipase, troponin, UA, head CT, chest x-ray, CT abdomen pelvis, ER note ABG, reviewed vitals, CBC, CMP, discussed with ER provider. Sepsis with fever 100.1, leukocytosis 13.68. With major comorbidities with acute encephalopathy with NSTEMI, with hypoxemia, pO2 56.5. With a BUN of 29, hypokalemia, hypomagnesemia. With finding of complicated urinary tract infection with cloudy malodorous urine with more than [address] abdomen pelvis reviewed, without obstructive uropathy. Blood culture, urine culture collected. Started on ceftriaxone. Continue IV antibiotic. Follow-up cultures. Monitor on telemetry with risk of arrhythmia. Gallbladder unremarkable, no right upper quadrant pain. T. bili normal. (3) NSTEMI (non-ST elevated myocardial infarction): Reviewed history, vitals, air sampling and monitoring, baseline troponin, troponin, EKG. T wave flattening in aVL, possible LVH on my interpretation, pending official read. Discussed with ER provider. Discussed with patient's family. Positive delta of 16, troponin rise up to 52 from 36. Has not had chest pain. Does have risk factors of coronary disease including smoking, hypertension. Discussed possible NSTEMI. Without reliable oral intake currently due to encephalopathy. Requested [place] aspirin. Discussed starting anticoagulation. With risk of bleeding with anticoagulation monitor for any bleeding, monitor PTT. Additional assessment with echo. At risk of arrhythmia, monitor on telemetry. Replace electrolytes. Once able to tolerate oral intake add beta-umberto, statin. Currently with uncontrolled hypertension, possibly contributing to NSTEMI, requested a dose of labetalol. Monitor blood pressures. Discussed with family also with risk factors of coronary disease would subsequently benefit from stress testing. (4) Hyponatremia: Has had poor oral intake/appetite in the last several days. Only had some crackers, water. Suspect hypovolemic or teetotaler hyponatremia. Gentle IV hydration with LR 30 mL/h. 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 Monitor sodium every 4 hours. Reassess chemistry in the morning. Otherwise is n.p.o. for now due to encephalopathy. (5) Hypokalemia: Received replacement. Replace magnesium. Recheck levels. (6) Hypomagnesemia: Requested replacement. Recheck magnesium. (7) Hypertension: Uncontrolled hypertension in ER, blood pressure 182/108, persist, as high as 197/116. Will give a dose of labetalol as she does not have reliable oral intake currently. Continue to monitor blood pressure. Plan Smoking addiction: Encourage cessation. Nicotine replacement with nicotine patch. Restless leg syndrome: Had been self treating with gabapentin and tonic water Small ulceration right lower quadrant/right groin with small scab, no surrounding cellulitis, no fluctuance, no drainage, no tunneling or deep wound. Appears possibly a small daniel burn?, She reportedly noticed that several days ago. Reassess. Follow-up with primary provider. Previously paronychia noted back in April reviewed PCP note, but no signs of infection on either foot currently. Attestations 2 Medical Necessity Statement*: Admission of over 2 midnights anticipated for assessment and management of acute encephalopathy, sepsis, UTI, NSTEMI, additional comorbidities as above. Diagnoses Acute encephalopathy G93.40 Sepsis A41.9 NSTEMI (non-ST elevated myocardial infarction) I21.4 Hyponatremia E87.1 Hypokalemia E87.6 Hypomagnesemia E83.42 Hypertension I10
[2024-08-04] MEDS: aspirin 300 mg Supp PR (19:56)
[2024-08-04 19:57] VITALS: BP 182/108; PULSE 883; RESP 19; O2SAT 95
[2024-08-04 19:58] VITALS: BP 168/105; PULSE 87; O2SAT 96
[2024-08-04 20:05] VITALS: BP 183/83; PULSE 83; RESP 19; TEMP 37.4; O2SAT 92
[2024-08-04 20:48] LABS: Vitamin B12 450 pg/mL (232-1245)
[2024-08-04 20:57] LABS: Sodium 125 mmol/L (136-145)
[2024-08-04] MEDS: labetalol 5 mg/mL SDV 20mL 10 MG IVP (21:52)
[2024-08-04] MEDS: heparin 5,000 unit/mL INJ 1 mL IVP (21:57)
[2024-08-04] MEDS: heparin drip 25,000 UNIT/500 ML PREMIX 13 UNIT IV (21:59)
[2024-08-04] MEDS: nicotine 21 mg Patch 1 PATCH TRANSDERMA (22:07)
--- NOTE | 2024-08-04 22:09 | ECG_ITS ---
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1950 Requested By: Senthil Demarco Order Number: [id number] Reading MD: ADELINE JOYA Measurements Intervals [place] Rate: 75 P: 86 [place]: 141 QRS: 58 QRSD: 100 T: 55 QT: 336 QTc: 378 Interpretive Statements SINUS RHYTHM WITH OCCASIONAL SUPRAVENTRICULAR PREMATURE COMPLEXES MINIMAL VOLTAGE CRITERIA FOR LVH, CONSIDER NORMAL VARIANT [MEETS CRITERIA IN ONE OF: R(aVL), S(V1), R(V5), R(V5/V6)+S(V1)] NONSPECIFIC T-WAVE ABNORMALITY Compared to ECG 08/04/2024 18:04:52 No significant changes Electronically Signed On 08-06-2024 12:02:27 CDT by ADELINE JOYA [id number]
[2024-08-04 22:18] LABS: Lactate (Lactic Acid level) 1.1 mmol/L (0.5-2.2)
[2024-08-04] MEDS: lactated ringers 1,000 ML 30 ML IV (22:24)
[2024-08-04] MEDS: doxycycline 100 MG in sodium chloride 0.9% (plus) 100 ML IV (22:24)
[2024-08-04] MEDS: magnesium sulfate premix 2 GM/50 ML PIGGYBACK IV (22:24)
[2024-08-04 22:26] LABS: Partial Thromboplastin Time 35.5 SECONDS (23.9-36.7)
--- NOTE | 2024-08-04 22:51 | PC.NURSE ---
Dr. Henson notified that patient is not able to sit still for Echo. US techGuillermo states that he cannot do it with her like this and is requesting that I contact the doctor to get her some medicine to sedate her. Dr. Henson notified that the US tech is unable to complete the US due to patient being AMS and not laying still. Dr. Henson ordered to try again tomorrow.
[2024-08-04 23:28] LABS: Troponin 5 6HR 94.95 ng/L (0-10)
[2024-08-04 23:33] LABS: Troponin 5 6HR Delta 58.95 ng/L (0-12)
[2024-08-05] VITALS (7 sets, daily range): BP systolic 106–154; BP diastolic 58–78; PULSE 55–71; RESP 16–18; TEMP 36.6–37.4; O2SAT 90–99
--- NOTE | 2024-08-05 01:23 | PC.NURSE ---
Addendum entered by Susan Barrera RN 08/05/24 02:10: Even though patient's orientation and speech has improved, patient is still attempting to get out bed without assistance. Patient was able to void in bedside commode at this time instead of being incontinent. Addendum entered by Susan Barrera RN 08/05/24 01:30: stated that the patient takes Gabapentin once daily for restless legs and also showed me a bottle of her Lisinopril-Hydrochlorthiazide. stated that he does not know of any other medications that she takes, but that she's usually the one who knows all of that stuff. These two medications have been verified in the med rec, however unable to verify any other home medications at this time. Original Note: When patient arrived to the floor, patient would not answer my questions and would not follow commands. Patient only spoke a few words, but for the most part was not talking or answering questions. Patient was assisted to the bedside commode twice with 2 assist and transfer was difficult due to patient not following commands well. Patient was incontinent of urine and required a total linen change. was at bedside and stated that the patient is normally up walking around and talking and that this was not like her at all. Patient required a 1:1 sitter due to frequently trying to get out of bed. Patient appeared to be having some pain at the IV site that the k-rider was running through. IV site was WNL and asymptomatic. After k-rider was complete, patient appeared to become calmer. At this time, patient is able to tell me where she is at, what the year is, and her name.
--- NOTE | 2024-08-05 02:12 | PC.NURSE ---
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
--- NOTE | 2024-08-05 02:13 | PC.NURSE ---
stated that patient has some kind of syndrome that causes her to not gain weight no matter how much she eats. He states I can't think of the name of it.
[2024-08-05 04:15] LABS: Basophils # 0.2 10^3/uL (0.0-0.1); Basophils % 0.9 %; Hematocrit 36.6 % (36-47); Lymphocytes # 0.8 10^3/uL (0.8-4.8); Lymphocytes % 5.2 %; Mean Corpuscular HGB Conc 33.9 g/dL (30-55); Mean Corpuscular Volume 94.3 fl (85-98); Mean Platelet Volume 10.9 fL (7.4-10.4); Monocytes # 0.8 10^3/uL (0.2-0.9); Neutrophils # 13.58 10^3/uL (1.8-7.7); Neutrophils % 85.7 %; Nucleated Red Blood Cells % 0 %; Platelet Count 164 10^3/cmm (157-399); Red Blood Count 3.88 10^6/uL (3.85-5.65); Red Cell Distribution Width 12.9 % (12.1-15.1); White Blood Count 15.86 10^3/uL (3.29-11.43)
[2024-08-05] MEDS: ondansetron 2 mg/ML SDV 2 mL 4 MG IVP (04:38)
[2024-08-05 04:49] LABS: Partial Thromboplastin Time 57.5 SECONDS (23.9-36.7)
[2024-08-05 04:50] LABS: Alanine Aminotransferase 43 U/L (0-33); Albumin Level 2.9 g/dL (3.5-5.2); Alkaline Phosphatase 190 U/L (35-105); Aspartate Amino Transferase 86 U/L (0-32); Blood Urea Nitrogen 29 mg/dL (8-23); Calcium 8.5 mg/dL (8.5-10.5); Carbon Dioxide 25 mmol/L (22-29); Chloride 89 mmol/L (98-107); Creatinine Clr Calc Pharmacy 41.2581; Globulin 2.9 g/dL (1.3-4.6); Glucose 110 mg/dL (65-115); Magnesium 2.3 mg/dL (1.7-2.3); Osmolality Calculated 272 mOsm/kg (285-295); Phosphorus 2.4 mg/dL (2.5-4.5); Sodium 128 mmol/L (136-145); Thyroid Stimulating Hormone 0.35 uIU/mL (0.27-4.20); Total Bilirubin 0.4 mg/dL (0.15-1.2); Total Protein 5.8 g/dL (6.6-8.7)
[2024-08-05 04:54] LABS: Anion Gap 17.5 (5-19); Potassium 3.5 mmol/L (3.5-5.1)
--- NOTE | 2024-08-05 05:16 | PC.NURSE ---
Dr. Henson notified that patient still has some confusion, but is much more alert and oriented than she was upon arrival to the floor. Notified that patient is asking for something for restless legs. Ordered to hold off for now and monitor mentation further.
[2024-08-05] MEDS: doxycycline 100 MG in sodium chloride 0.9% (plus) 100 ML IV ×2 (07:45→20:26)
[2024-08-05] MEDS: nicotine 21 mg Patch 1 PATCH TRANSDERMA (08:14)
[2024-08-05] MEDS: aspirin 300 mg Supp PR (08:16)
--- NOTE | 2024-08-05 08:44 | PC.CHAP ---
Pastoral Care Encounter/Spiritual Assessment Type of Contact [] Declined timber feller visit [] Patient/Family/Request visit [] Outpatient visit [] Follow-up visit [] Physician referral [] Code/Alert [] Routine visit [] Staff referral [] Actively dying [] Patient sleeping [] Family support [] [] Out of room [] Palliative care [] [x] Receiving care in room [] Pre-surgical visit [] Trauma [] Long length of stay [] ICU visit [] Other: Relational/Emotional Strength [] Patient feels connected with others/family/visitors/staff [] Distress [] Loneliness/isolation [] Abandonment Spirituality of Patient [] Person of Ani [] Attends Denominational of their Ani [] Believes in Prayer [] Reads Bible or Druze materials [] There are Spiritual issues to be addressed Tea Taster Interventions [] Prayer [] Active listening [] Non-anxious presence [] Spiritual/emotional support [] Crisis/trauma care [] Spiritual counseling [] Bereavement support [] Provided bereavement packet [] Provided Bible/devotional materials [] Provided toy/stuffed animal, coloring book to patient or family member [] Provided Communion [] Anointing/[place] [] Salvation [] Completed spiritual assessment [] Other: Impact on Illness or Injury [] Angry [] Fearful [] Anxious [] Often cries [] Exhaustion [] Unable to work [] Unable to attend cheondoism [] Unable to walk/stand [] Unable to read [] Unable to drive [] Unable to eat/drink [] Unable to sleep [] Unable to be with family [] Patient intubated [] Other: Summary Time spent with patient
[2024-08-05 11:10] LABS: Partial Thromboplastin Time 56.1 SECONDS (23.9-36.7)
--- NOTE | 2024-08-05 15:52 | PC.NURSE ---
Pt incontinent of urine in brief.
--- NOTE | 2024-08-05 16:53 | P.PN_ITS ---
Subjective 2 Subjective: She is much more alert today, takes her some time to answer orientation questions, but does get the year correctly, tells me the name of the hospital. Does not give me the town name. Denies pain or discomfort. No headache. No abdominal or back pain. No GI complaints. Had some clear liquid breakfast. Vitals/I&O/Wt Last Vital Signs Temp 98.2 F 08/05/24 15:33 Pulse 67 08/05/24 15:33 Resp 17 08/05/24 15:33 BP 154/78 08/05/24 15:33 Pulse Ox 98 08/05/24 15:33 O2 Del Method Nasal Cannula 08/05/24 15:33 O2 Flow Rate 2 08/05/24 08:00 08/05/24 08/05/24 08/05/24 06:59 14:59 22:59 Intake Total 482.517 / 582.517 289.517 / 289.517 Output Total 300 / 300 Balance 182.517 / 282.517 289.517 / 289.517 Weight last 48 hrs Weight 49.169 kg Weight 48.353 kg Weight 45.994 kg Weight 45.359 kg Physical Exam 2 Const: GENERAL APPEARANCE: not cooperative ORIENTATION/CONSCIOUSNESS: Yes oriented to person, Yes oriented to time and Yes confused (Less) HENMT: COMMON NORMALS: oropharynx normal Neck/C-Spine: COMMON NORMALS: no JVD Resp: COMMON NORMALS: normal respiratory effort and clear to auscultation bilaterally AUSCULTATION: clear to auscultation bilaterally Cardio: COMMON NORMALS: no JVD, regular rhythm, S1 normal heart sound present, S2 normal heart sound present and No murmurs present (Cardio) RHYTHM: regular rhythm HEART SOUNDS: S1 normal heart sound present and S2 normal heart sound present GI: COMMON NORMALS: Normal to inspection, nondistended, normoactive bowel sounds present, Soft to palpation and non-tender PALPATION: Yes Soft to palpation Extremity: COMMON NORMALS: no joint enlargement and no pedal edema Neuro: COMMON NORMALS: moves all extremities SENSORIUM/ORIENTATION: Yes oriented to person and Yes oriented to time Skin: COMMON NORMALS: no rashes or lesions noted NARRATIVE SKIN EXAM: Small ulceration, 4 mm, with eschar at baseline, possible cigarette burn? On the right lower quadrant/right groin. GENERAL SKIN EXAM: no rashes or lesions noted OTHER: No signs of ongoing paronychia or infection on either of the feet. Data 08/05/24 04:06 08/05/24 04:06 Micro: Microbiology 08/04/24 16:50 Blood Culture - Preliminary Blood SPECIMEN COLLECTED 08/04/24 16:50 Blood Culture - Preliminary Blood SPECIMEN COLLECTED A&P Assessment and plan (1) Acute encephalopathy: Showing improvement. Still with persistent encephalopathy, confused, but he is more alert, interactive, following directions, is able to tell me the year, able to tell me the name of the hospital but not the town. Cannot give me history from yesterday, not surprisingly, but otherwise denies any discomfort. Reviewed vitals, reviewed intake and output. Did have about 25% of her clear liquid meals today. Will add Ensure. Continue liquids for now. If doing well advance diet. Reviewed CBC, leukocytosis 15.8 noted. No further fever. Sepsis resolved. Reviewed CMP, magnesium, phosphorus. TSH. Reviewed urine culture, still pending. Reviewed blood culture, no growth so far. Continue ceftriaxone for complicated urine tract infection with encephalopathy, resolved sepsis. With NSTEMI. Hyponatremia. Continue doxycycline empirically for possible tickborne encephalitis. Follow-up tick panel. Hold gabapentin. Hold tonic water. 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 Possible hypertensive encephalopathy, blood pressures with improvement. Resume lisinopril. Fall precautions due to fall risk, one-to-one sitter due to climbing out of bed, confusion with delirium. Reorient. So far has not required chemical sedation. With risk of aspiration. Aspiration precautions. Treat additional underlying causes as below. Per history obtained from her family, she normally is alert and oriented, independent and active. (2) Sepsis: Sepsis resolved. Continue to treat UTI. Possible tickborne infection. (3) NSTEMI (non-ST elevated myocardial infarction): Reviewed troponin, overall troponin rise up to 94.95, delta 59. Possible NSTEMI. Reviewed echocardiogram, no normal ejection fraction, grade 1 diastolic dysfunction. Continue aspirin, continue anticoagulation at current time. She denies chest pain at this time. Will benefit from further workup with stress testing prior to discharge given multiple cardiac risk factors. Monitor on telemetry with risk of arrhythmia. Add statin. Hold off beta-umberto due to bradycardia. Resume lisinopril. (4) Hyponatremia: Improving. Sodium up to 128. Encourage oral intake. Continue gentle IV hydration for now as oral intake is not very good. Monitor for risk of fluid overload. Reassess sodium. Add Ensure. Has had poor oral intake/appetite in the last several days. Only had some crackers, water. Suspect hypovolemic or teetotaler hyponatremia. Gentle IV hydration with LR 30 mL/h. 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 Monitor sodium every 4 hours. Reassess chemistry in the morning. Otherwise is n.p.o. for now due to encephalopathy. (5) Hypokalemia: Received replacement. Replace magnesium. Recheck levels. (6) Hypomagnesemia: Requested replacement. Recheck magnesium. (7) Hypertension: Resume lisinopril. Plan Smoking addiction: Encourage cessation. Nicotine replacement with nicotine patch. Restless leg syndrome: Had been self treating with gabapentin and tonic water Small ulceration right lower quadrant/right groin with small scab, no surrounding cellulitis, no fluctuance, no drainage, no tunneling or deep wound. Appears possibly a small daniel burn?, She reportedly noticed that several days ago. Reassess. Follow-up with primary provider. Previously paronychia noted back in April reviewed PCP note, but no signs of infection on either foot currently. Attestations 2 Medical Necessity Statement*: Continue admission for assessment management of acute encephalopathy, UTI, NSTEMI. and High MDM includes amount and/or complexity of data reviewed/ordered [ resulted lab(s)/test(s), ordered lab(s)/test(s) and other healthcare professional discussion] and described risk of complication, morbidity or mortality of management as documented Diagnoses Acute encephalopathy G93.40 Sepsis A41.9 NSTEMI (non-ST elevated myocardial infarction) I21.4 Hyponatremia E87.1 Hypokalemia E87.6 Hypomagnesemia E83.42 Hypertension I10
[2024-08-05] MEDS: cefTRIAXone 1,000 mg SDV 1000 MG IVP (17:13)
[2024-08-05 17:25] LABS: Partial Thromboplastin Time 64.8 SECONDS (23.9-36.7)
--- NOTE | 2024-08-05 20:05 | USCV_ITS ---
Milana Henning Age: 74 Gender: F : 1950 Exam Date: 08/04/2024 20:22 Ordering Phys: Anthony Diaz MD Technologist: Exam Location: [facility] [place] Indication: cp BP: 168 / 105 HR: 74 Rhythm: Sinus Technical Quality: Adequate MEASUREMENTS (Male / Female) Normal Values 2D ECHO LV Diastolic Diameter PLAX 4.4 cm 4.2 - 5.9 / 3.9 - 5.3 cm IVS Diastolic Thickness 1.1 cm 0.6 - 1.0 / 0.6 - 0.9 cm IVS Systolic Thickness 1.1 cm LVPW Diastolic Thickness 1.1 cm 0.6 - 1.0 / 0.6 - 0.9 cm LVPW Systolic Thickness 0.8 cm LVOT Diameter 2.0 cm LV Ejection Fraction 2D Teich 34.7 % LV Ejection Fraction MOD 4C 54.6 % LV Ejection Fraction MOD 2C 61.8 % LV Ejection Fraction 2C AL 63.4 % LA Diameter 3.9 cm RA Systolic Volume 4C AL 29.8 ml RA Systolic Volume 4C MOD 29.6 ml IVC Diameter 1.5 cm M-MODE LA Ao Ratio MM 1.0 AV Cusp Separation MM 2.2 cm DOPPLER AV Peak Velocity 157.0 cm/s LVOT Peak Velocity 118.0 cm/s AV Area Cont Eq vti 2.4 cm squared AV Area Cont Eq pk 2.4 cm squared MV Peak Velocity 99.0 cm/s TV Peak Velocity 309.5 cm/s TR Peak Velocity 336.0 cm/s TR Peak Gradient 45.2 mmHg TV Peak E Velocity 95.0 cm/s Right Atrial Pressure 3.0 mmHg Pulmonary Artery Systolic Pressu 48.2 mmHg PV Peak Velocity 114.0 cm/s FINDINGS Left Ventricle Normal left ventricular size, systolic function and wall thickness, with no regional wall motion abnormalities. Left ventricular ejection fraction is estimated at 55 %. Grade I/IV diastolic dysfunction (abnormal relaxation filling pattern), normal to mildly elevated filling pressures. Right Ventricle The right ventricle is normal in size and function. Right Atrium The right atrium is normal in size. Left Atrium Moderately increased left atrial size. Mitral Valve Mildly thickened mitral valve. Mild-moderate mitral valve regurgitation. Aortic Valve Thickened aortic valve. No aortic valve stenosis. Trace aortic valve regurgitation. Tricuspid Valve Structurally normal tricuspid valve without significant stenosis or regurgitation. Pulmonary artery systolic pressure is normal. Pulmonic Valve Structurally normal pulmonic valve without significant stenosis. There is no pulmonic regurgitation. Pericardium Normal pericardium without effusion. Aorta Normal ascending aorta dimension. IVC The inferior vena cava appears normal. CONCLUSIONS Normal left ventricular size, systolic function and wall thickness, with no regional wall motion abnormalities. Left ventricular ejection fraction is estimated at 55 %. Grade I/IV diastolic dysfunction (abnormal relaxation filling pattern), normal to mildly elevated filling pressures. Moderately increased left atrial size. Mildly thickened mitral valve. Mild-moderate mitral valve regurgitation. There is no pericardial effusion. Right atrial pressure is around 5 mm of mercury. Andrey Martinez MD (Electronically Signed) Final Date: 05 August 2024 12:58 S
[2024-08-05] MEDS: lisinopril 20 mg Tablet PO (20:25)
[2024-08-05] MEDS: atorvastatin 40 mg Tablet PO (20:26)
[2024-08-05] MEDS: acetaminophen 325 mg Tablet 650 MG PO (22:15)
[2024-08-05 23:51] LABS: Partial Thromboplastin Time 73.8 SECONDS (23.9-36.7)
[2024-08-06 03:55] VITALS: BP 132/82; PULSE 100; RESP 18; TEMP 36.4; O2SAT 95
[2024-08-06 05:47] LABS: Basophils # 0.1 10^3/uL (0.0-0.1); Basophils % 0.5 %; Eosinophils % 0.1 %; Lymphocytes # 1.5 10^3/uL (0.8-4.8); Lymphocytes % 8.7 %; Mean Corpuscular HGB Conc 35.1 g/dL (30-55); Mean Corpuscular Hemoglobin 32.1 pg (27-33); Mean Corpuscular Volume 91.4 fl (85-98); Mean Platelet Volume 10.7 fL (7.4-10.4); Monocytes # 0.8 10^3/uL (0.2-0.9); Monocytes % 4.7 %; Neutrophils # 14.51 10^3/uL (1.8-7.7); Neutrophils % 85.2 %; Nucleated Red Blood Cells % 0 %; Platelet Count 186 10^3/cmm (157-399); Red Blood Count 3.83 10^6/uL (3.85-5.65); Red Cell Distribution Width 12.9 % (12.1-15.1); White Blood Count 17.01 10^3/uL (3.29-11.43)
[2024-08-06 06:02] LABS: Slide Review Slide Review Perform
[2024-08-06 06:03] LABS: Alanine Aminotransferase 47 U/L (0-33); Albumin Level 2.6 g/dL (3.5-5.2); Alkaline Phosphatase 179 U/L (35-105); Anion Gap 14.2 (5-19); Aspartate Amino Transferase 81 U/L (0-32); Blood Urea Nitrogen 26 mg/dL (8-23); Calcium 8.1 mg/dL (8.5-10.5); Carbon Dioxide 25 mmol/L (22-29); Chloride 91 mmol/L (98-107); Creatinine Clr Calc Pharmacy 46.7331; Globulin 2.5 g/dL (1.3-4.6); Glucose 107 mg/dL (65-115); Osmolality Calculated 269 mOsm/kg (285-295); Potassium 3.2 mmol/L (3.5-5.1); Sodium 127 mmol/L (136-145); Total Bilirubin 0.4 mg/dL (0.15-1.2); Total Protein 5.1 g/dL (6.6-8.7)
[2024-08-06 06:08] LABS: Partial Thromboplastin Time 78.9 SECONDS (23.9-36.7)
[2024-08-06 07:53] LABS: Lyme AB Screen <0.90 index
[2024-08-06 08:00] VITALS: BP 110/81; PULSE 110; RESP 17; TEMP 36.4; O2SAT 91
[2024-08-06] MEDS: aspirin 300 mg Supp PR (08:57)
[2024-08-06] MEDS: nicotine 21 mg Patch 1 PATCH TRANSDERMA (08:57)
[2024-08-06] MEDS: lisinopril 20 mg Tablet PO (08:58)
[2024-08-06] MEDS: lactated ringers 1,000 ML 30 ML IV (08:58)
[2024-08-06] MEDS: doxycycline 100 MG in sodium chloride 0.9% (plus) 100 ML IV ×2 (08:58→20:50)
[2024-08-06] MEDS: potassium chloride ER 20 mEq Tablet 40 MEQ PO (09:39)
[2024-08-06] MEDS: heparin drip 25,000 UNIT/500 ML PREMIX 12 UNIT IV (11:26)
[2024-08-06 12:00] VITALS: BP 137/69; PULSE 64; RESP 18; TEMP 36.6; O2SAT 98
[2024-08-06 12:55] LABS: Partial Thromboplastin Time 60.4 SECONDS (23.9-36.7)
--- NOTE | 2024-08-06 13:36 | P.PN_ITS ---
Subjective 2 Subjective: She reports she is feeling much better today. She is alert and fully oriented. She is back to baseline in terms of mental status. She is hungry and has tolerated liquids so far, would like to advance diet. She has not had chest pain, is not short of breath. We discussed with her findings so far, findings on urine culture as well. As well as findings on cardiac workup with troponin elevation concern for NSTEMI. Echo results. Discussed further workup with stress testing if she continues to do well tomorrow including risks, and she is agreeable to proceed. 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 Const: COMMON NORMALS: negative for patient oriented x3 GENERAL APPEARANCE: not cooperative ORIENTATION/CONSCIOUSNESS: Yes oriented to person, Yes oriented to time and Yes confused (Less) HENMT: COMMON NORMALS: oropharynx normal Neck/C-Spine: COMMON NORMALS: no JVD Resp: COMMON NORMALS: normal respiratory effort and clear to auscultation bilaterally AUSCULTATION: clear to auscultation bilaterally Cardio: COMMON NORMALS: no JVD, regular rhythm, S1 normal heart sound present, S2 normal heart sound present and No murmurs present (Cardio) RHYTHM: regular rhythm HEART SOUNDS: S1 normal heart sound present and S2 normal heart sound present GI: COMMON NORMALS: Normal to inspection, nondistended, normoactive bowel sounds present, Soft to palpation and non-tender PALPATION: Yes Soft to palpation Extremity: COMMON NORMALS: no joint enlargement and no pedal edema Neuro: COMMON NORMALS: moves all extremities; negative for patient oriented x3 SENSORIUM/ORIENTATION: Yes oriented to person and Yes oriented to time Skin: COMMON NORMALS: no rashes or lesions noted NARRATIVE SKIN EXAM: Small ulceration, 4 mm, with eschar at baseline. On the right lower quadrant/right groin. No tunneling, undermining, no surrounding erythema. GENERAL SKIN EXAM: no rashes or lesions noted OTHER: No signs of ongoing paronychia or infection on either of the feet. Data 08/06/24 05:41 08/06/24 05:41 Micro: Microbiology 08/04/24 16:47 Urine Culture - Preliminary Urine,Clean Catch Gram Negative Rods 08/04/24 16:50 Blood Culture - Preliminary Blood NEGATIVE TO DATE 08/04/24 16:50 Blood Culture - Preliminary Blood NEGATIVE TO DATE A&P Assessment and plan (1) NSTEMI (non-ST elevated myocardial infarction): Discussed with her and her son regarding positive troponin delta, moderate troponin rise, echocardiogram results. Discussed further assessment with stress testing for tomorrow. Discussed risks with stress testing including risk of worsening ischemia, SC, potentially severe or life-threatening. No caffeine. N.p.o. after midnight. Discussed with nursing staff. Continue anticoagulation for now to complete 72 hours. Monitor for risk of bleeding with heparin drip. Monitor PTTs. Reviewed troponin, overall troponin rise up to 94.95, delta 59. Possible NSTEMI. Reviewed echocardiogram, no normal ejection fraction, grade 1 diastolic dysfunction. Continue aspirin, continue anticoagulation at current time. She denies chest pain at this time. Monitor on telemetry with risk of arrhythmia. Add statin. Hold off beta-umberto due to bradycardia. Resume lisinopril. (2) UTI (urinary tract infection): Reviewed vitals, CBC. WBC with increase of 17. She is afebrile. No tachycardia. Sepsis has resolved. Reviewed urine culture, growing gram- negative rods more than 100,000 CFU. Reviewed blood culture, unremarkable preliminary study. Follow-up. (3) Acute encephalopathy: She feels she has been doing well and I do not see her aspirating while she is sitting at the bedside, although some concern for aspiration has been expressed. She does want to advance diet, but we are also going to obtain assessment by speech therapy to which she is agreeable. Encephalopathy otherwise has resolved she is alert, pleasant, conversant, back to her baseline. Continue to treat complicated UTI. Treat possible tickborne illness, but this appears to be less likely. Platelets are normal. Although she is still having some persistence of transaminitis. Follow-up tick panel. DC LR. She she now has prescribed gabapentin which she takes for restless legs, her family is finding out the dose which we can resume while in the hospital. She drinks only about 1 bottle of tonic water in a day or sometimes over several days. 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 Possible hypertensive encephalopathy, blood pressures with improvement. Resume lisinopril. Fall precautions due to fall risk, one-to-one sitter due to climbing out of bed, confusion with delirium. Reorient. So far has not required chemical sedation. With risk of aspiration. Aspiration precautions. Treat additional underlying causes as below. Per history obtained from her family, she normally is alert and oriented, independent and active. (4) Sepsis: Sepsis resolved. Continue to treat UTI. Possible tickborne infection. (5) Hyponatremia: Improving. Sodium up to 127. Encourage oral intake. Continue gentle IV hydration for now as oral intake is not very good. Monitor for risk of fluid overload. Reassess sodium. Add Ensure. Has had poor oral intake/appetite in the last several days. Only had some crackers, water. Suspect hypovolemic or teetotaler hyponatremia. Gentle IV hydration with LR 30 mL/h. 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 Monitor sodium every 4 hours. Reassess chemistry in the morning. Otherwise is n.p.o. for now due to encephalopathy. (6) Hypokalemia: Given additional replacement. Recheck. Recheck magnesium. (7) Hypomagnesemia: Recheck magnesium. (8) Hypertension: Resume lisinopril. Plan Smoking addiction: Encourage cessation. Nicotine replacement with nicotine patch. Restless leg syndrome: Resume gabapentin once home dose is available. Small ulceration right lower quadrant/right groin with small scab, no surrounding cellulitis, no fluctuance, no drainage, no tunneling or deep wound. Appears possibly a small daniel burn?, She reportedly noticed that several days ago. Reassess. Follow-up with primary provider. Previously paronychia noted back in April reviewed PCP note, but no signs of infection on either foot currently. Attestations 2 Medical Necessity Statement*: Continue admission for assessment management of NSTEMI, UTI. and High MDM includes amount and/or complexity of data reviewed/ordered [ resulted lab(s)/test(s), ordered lab(s)/test(s) and other healthcare professional discussion] and described risk of complication, morbidity or mortality of management as documented Diagnoses NSTEMI (non-ST elevated myocardial infarction) I21.4 UTI (urinary tract infection) N39.0 Acute encephalopathy G93.40 Sepsis A41.9 Hyponatremia E87.1 Hypokalemia E87.6 Hypomagnesemia E83.42 Hypertension I10
[2024-08-06 16:00] VITALS: BP 119/74; PULSE 66; RESP 16; TEMP 36.6; O2SAT 95
[2024-08-06] MEDS: water for injection-sterile 10 ML 100 ML (17:26)
[2024-08-06] MEDS: gabapentin 300 mg Capsule PO (17:26)
[2024-08-06] MEDS: cefTRIAXone 1,000 mg SDV 1000 MG IVP (17:27)
[2024-08-06 20:00] VITALS: BP 103/57; PULSE 63; RESP 17; TEMP 36.4; O2SAT 96
[2024-08-06] MEDS: atorvastatin 40 mg Tablet PO (20:50)
[2024-08-07] VITALS: BP 148/81; PULSE 56; RESP 16; TEMP 36.6; O2SAT 95
--- NOTE | 2024-08-07 | ECG_ITS ---
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 The perfusion scan will be documented separately. DATA: Baseline heart rate was 65 beats per minute. Baseline blood pressure was 175/94 millimeters of mercury. Target heart rate was 147. Maximum heart rate achieved was 85. which was 57% of the predicted target heart rate. Maximum blood pressure was 175/94 millimeters of mercury. The reason for ending the test was completion of the protocol. The patient did not experience any symptoms. ELECTROCARDIOGRAM: BASELINE: Sinus rhythm. Normal axis. Old anteroseptal myocardial infarction, otherwise no ST-T changes suggestive of ischemia noted. No arrhythmia noted. EXERCISE: After Lexiscan injection, no ST-T changes suggestive of ischemic noted. No arrhythmia noted. CONCLUSION: Please note due to baseline abnormality of the EKG specificity and sensitivity of the EKG portion of LexiScan MIBI stress test will be low 1. EKG not suggestive of ischemia 2. Lexiscan injection unremarkable. 3. Perfusion scan will be documented separately. Electronically Signed On 08-07-2024 9:39:07 CDT by ADELINE JOYA [email or web address]
[2024-08-07] MEDS: heparin 5,000 unit/mL INJ 1 mL IVP ×2 (01:14→06:19)
[2024-08-07 04:00] VITALS: BP 143/79; PULSE 58; RESP 16; TEMP 36.6; O2SAT 93
[2024-08-07 07:09] LABS: Hematocrit 35.1 % (36-47); Mean Corpuscular HGB Conc 34.8 g/dL (30-55); Mean Corpuscular Hemoglobin 31.6 pg (27-33); Mean Corpuscular Volume 90.9 fl (85-98); Mean Platelet Volume 11.3 fL (7.4-10.4); Platelet Count 248 10^3/cmm (157-399); Red Blood Count 3.86 10^6/uL (3.85-5.65); White Blood Count 17.48 10^3/uL (3.29-11.43)
[2024-08-07 07:23] LABS: Magnesium 1.8 mg/dL (1.7-2.3)
[2024-08-07 07:27] LABS: Partial Thromboplastin Time 77.4 SECONDS (23.9-36.7)
[2024-08-07 07:35] LABS: Absolute Neutrophil 15.2 10^3/cmm (1.4-6.5); Absolute Segmented Neutrophil 11.4 10/cmm (1.6-7.1); Band Neutrophils Absolute 3.8 10^3/cmm (0.0-1.2); Lymphocytes 10 %; Monocytes Absolute 0.5 10^3/cmm (0.1-0.6); Platelet Estimate Normal (Normal); Segmented Neutrophils 65 %; Total Cells Counted 100 (0-100)
[2024-08-07 07:36] LABS: Eosinophils 0 %; Lymphocytes Absolute 1.7 10^3/cmm (1.2-3.4)
[2024-08-07] MEDS: regadenoson 0.4 Mg/5 ml Syringe IVP (07:45)
[2024-08-07 07:54] VITALS: BP 163/83; PULSE 67
[2024-08-07 08:16] LABS: Alanine Aminotransferase 62 U/L (0-33); Albumin Level 3.2 g/dL (3.5-5.2); Alkaline Phosphatase 289 U/L (35-105); Anion Gap 21.2 (5-19); Aspartate Amino Transferase 93 U/L (0-32); Blood Urea Nitrogen 29 mg/dL (8-23); Calcium 9.1 mg/dL (8.5-10.5); Carbon Dioxide 22 mmol/L (22-29); Chloride 94 mmol/L (98-107); Globulin 2.4 g/dL (1.3-4.6); Glucose 104 mg/dL (65-115); Osmolality Calculated 282 mOsm/kg (285-295); Potassium 4.2 mmol/L (3.5-5.1); Sodium 133 mmol/L (136-145); Total Bilirubin 0.4 mg/dL (0.15-1.2); Total Protein 5.6 g/dL (6.6-8.7)
[2024-08-07 08:17] LABS: Creatinine Clr Calc Pharmacy 42.6878
[2024-08-07] MEDS: doxycycline 100 MG in sodium chloride 0.9% (plus) 100 ML IV (09:45)
[2024-08-07] MEDS: aspirin 325 mg Tablet PO (09:50)
[2024-08-07] MEDS: nicotine 21 mg Patch 1 PATCH TRANSDERMA (09:51)
[2024-08-07] MEDS: gabapentin 300 mg Capsule PO (09:51)
[2024-08-07] MEDS: lisinopril 20 mg Tablet PO (09:51)
--- NOTE | 2024-08-07 10:10 | PC.SOCIAL ---
IMM Update Pg 2. of IMM updated and reviewed with patient who verbalized understanding. Copy provided.
--- NOTE | 2024-08-07 11:28 | PM.DCS ---
Discharge Providers Date of Admission: 08/04/24 18:40 Date of Discharge: August 07, 2024 Attending Provider at Admission: Anthony Diaz Attending Provider at Discharge: Anthony Diaz Primary Care Provider: Abiodun Joiner DO Diagnoses at Discharge Discharge Diagnosis (1) NSTEMI (non-ST elevated myocardial infarction): Status: Acute (2) UTI (urinary tract infection): Status: Acute (3) Acute encephalopathy: Status: Acute (4) Sepsis: Status: Acute (5) Hyponatremia: Status: Acute (6) Hypokalemia: Status: Acute (7) Hypomagnesemia: Status: Acute (8) Hypertension: Status: Acute Reason for Visit Reason for Visit: LOC, Fever Brief History: 74-year-old lady with history of chronic smoking, hypertension, restless leg syndrome which she had been self treating with gabapentin (prescription of her dog) and tonic water with success, 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 No specific complaints, no shortness of breath, some chronic cough, nothing unusual with her chronic smoking, nausea vomiting diarrhea, no definite rash. Had noticed a small wound with eschar over the right lower quadrant of the abdomen/right groin. She does not have history of dementia. Normally is alert and oriented, works in the garden. Does go outside a lot. Mental status worsened yesterday and this morning, and by the afternoon she has been confused, lethargic, restless, not following directions. In ER she is febrile 100.1. 13.68 WBC. With hypoxemia, pO2 56.5 on room air. With noted cloudy urine with more than 100 WBC. With some transaminitis AST 64, LT 40, alk phos 152. Hyponatremia 126. Potassium of 2.9. Baseline troponin 36. Head CT without acute abnormality. Chest x-ray without acute findings. CT kidney stone protocol pending. Hospital Course Hospital Course She was treated with ceftriaxone for complicated urine tract infection, sepsis, with sepsis resolving, with gradually improving mental status. Gabapentin was held while in the hospital initially. Hyponatremia showed gradual improvement from 126-133. Encephalopathy gradually resolved. She was resumed on lisinopril with gradual improvement in blood pressures. At discharge she is resuming on HCTZ as well. Instructed to monitor blood pressures twice daily. Continue to optimize cardiovascular risk factors. While in the hospital had positive troponin delta with increase in troponin to moderate range. Echocardiogram obtained with normal ejection fraction, grade 1 diastolic dysfunction. Mildly thickened mitral valve. Mild to moderate mitral regurgitation. With cardiovascular risk factors including smoking, hypertension, with positive troponin, although has been chest pain-free. Underwent stress testing which showed a large area of fixed perfusion defect inferiorly, inferoseptal, basal to mid inferolateral without significant reversibility. Suggestive of old MT versus scarring, but attenuation artifact could not be ruled out. Discussed with her and her family regarding the result. Discussed cardiovascular risks, revisited again regarding smoking cessation. She is agreeable to nicotine patches at discharge. Continue to encourage and support cessation, continue to optimize cardiovascular risk factors. She is asked to also follow-up with cardiology. Urine culture eventually grew E. coli resistant to ampicillin, Bactrim and tetracycline. She will complete antibiotic course with cefdinir. Blood culture remains negative. Please follow-up. On presentation also with some transaminitis, moderate elevation of alk phos, CT abdomen pelvis unremarkable, gallbladder and biliary ducts normal in CT. T. bili has remained normal. She has had no abdominal pain, no right upper quadrant tenderness. She spends a great deal of time outdoors, with transaminitis, hyponatremia, encephalopathy, is also treated empirically with doxycycline at current time for possible tickborne infection, although platelets have remained normal. Tick panel is pending, please follow-up. There is a small shallow ulceration in the right lower abdominal quadrant/right groin with a scab, unclear origin, she denies cigarette burn, possible insect bite? There is no swelling induration drainage tunneling no surrounding cellulitis. Please follow-up for continued healing. Physical Exam Narrative: Accompanied by and son. Sitting up in a chair, having breakfast. Reports she is doing quite well, happy to return home. Const: COMMON NORMALS: patient oriented x3 and alert GENERAL APPEARANCE: cooperative ORIENTATION/CONSCIOUSNESS: Yes awake HENMT: COMMON NORMALS: oropharynx normal Neck/C-Spine: COMMON NORMALS: no JVD Resp: COMMON NORMALS: normal respiratory effort and clear to auscultation bilaterally AUSCULTATION: clear to auscultation bilaterally Cardio: COMMON NORMALS: no JVD, regular rhythm, S1 normal heart sound present, S2 normal heart sound present and No murmurs present (Cardio) RHYTHM: regular rhythm HEART SOUNDS: S1 normal heart sound present and S2 normal heart sound present GI: COMMON NORMALS: Normal to inspection, nondistended, normoactive bowel sounds present, Soft to palpation and non-tender PALPATION: Yes Soft to palpation Extremity: COMMON NORMALS: no joint enlargement and no pedal edema Neuro: COMMON NORMALS: patient oriented x3 and moves all extremities SENSORIUM/ORIENTATION: Yes alert Skin: COMMON NORMALS: no rashes or lesions noted GENERAL SKIN EXAM: no rashes or lesions noted Discharge Data Studies Completed and Pending Completed Studies During Hospitalization Category Date Time Status CT head wo con* [id number] Stat Cat Scan 08/04/24 16:[address] kidney stone [id number] Stat Cat Scan 08/04/24 17:49 Completed Cardiac Stress Test MIBI [Sestamibi Stress Test Request Exams 08/07/24 08:00 Completed ] Routine XR chest 1V portable [id number] Stat Exams 08/04/24 16:27 Completed NM tatyana perf SPECT r/s* [id number] Routine Nuc Med 08/07/24 13:35 Completed CV. echo complete* [id number] Routine Ultrasound 08/05/24 20:05 Completed Pending at discharge Category Date Time Status Blood Culture Stat Lab 08/04/24 16:50 Results Platelet Count Q2D Lab 08/08/24 04:00 Ordered Tick Panel Stat Lab 08/04/24 18:52 Results Radiology Impressions Head CT 08/04/24 16:06 IMPRESSION: No acute intracranial abnormality. Chest X-Ray 08/04/24 16:27 IMPRESSION: No acute findings. Abdomen/Pelvis CT 08/04/24 17:49 IMPRESSION: 1. No bowel obstruction or inflammatory process associated with the bowel. 2. No free air or significant free fluid in the abdomen or pelvis. 3. The appendix is not visualized but there are no secondary signs of acute appendicitis. 4. No hydronephrosis or renal calculus. No stone in the bladder. Laboratory Results WBC 17.48 10^3/uL (3.29-11.43) H 08/07/24 06:52 RBC 3.86 10^6/uL (3.85-5.65) 08/07/24 06:52 Hgb 12.20 g/dL (11.27-16.99) 08/07/24 06:52 Hct 35.1 % (36-47) L 08/07/24 06:52 MCV 90.9 fl (85-98) 08/07/24 06:52 MCH 31.6 pg (27-33) 08/07/24 06:52 MCHC 34.8 g/dL (30-55) 08/07/24 06:52 RDW 13.0 % (12.1-15.1) 08/07/24 06:52 Plt Count 248 10^3/cmm (157-399) D 08/07/24 06:52 MPV 11.3 fL (7.4-10.4) H 08/07/24 06:52 Neut % (Auto) 85.2 % 08/06/24 05:41 Lymph % (Auto) Not Reportable 08/07/24 06:52 Lamar % (Auto) Not Reportable 08/07/24 06:52 Eos % (Auto) 0.1 % 08/06/24 05:41 Baso % (Auto) 0.5 % 08/06/24 05:41 Neut # (Auto) 14.51 10^3/uL (1.8-7.7) H 08/06/24 05:41 Lymph # (Auto) Not Reportable 08/07/24 06:52 Lamar # (Auto) Not Reportable 08/07/24 06:52 Eos # (Auto) 0.0 10^3/uL (0.0-0.8) 08/06/24 05:41 Baso # (Auto) 0.1 10^3/uL (0.0-0.1) 08/06/24 05:41 Nucleated RBC % (auto) 0 % 08/06/24 05:41 Total Counted 100 (0-100) 08/07/24 06:52 Atypical Lymphs % 0.0 % (0-5) 08/07/24 06:52 Absolute Neutrophils 15.2 10^3/cmm (1.4-6.5) H 08/07/24 06:52 Segmented Neutrophils 65 % 08/07/24 06:52 Abs Segm Neuts (Man) 11.4 10/cmm (1.6-7.1) H 08/07/24 06:52 Band Neutrophils 22.0 % 08/07/24 06:52 Abs Band Neuts (Man) 3.8 10^3/cmm (0.0-1.2) H 08/07/24 06:52 Absolute Lymphocytes 1.7 10^3/cmm (1.2-3.4) 08/07/24 06:52 Lymphocytes (Manual) 10 % 08/07/24 06:52 Monocytes (Manual) 3.0 % 08/07/24 06:52 Absolute Monocytes 0.5 10^3/cmm (0.1-0.6) 08/07/24 06:52 Eosinophils (Manual) 0 % 08/07/24 06:52 Absolute Eosinophils 0.0 10^3/cmm (0.0-0.7) 08/07/24 06:52 Basophils (Manual) 0.0 % 08/07/24 06:52 Absolute Basophils 0.0 10^3/cmm (0.0-0.2) 08/07/24 06:52 Nucleated RBCs # 0.0 /100WBC 08/06/24 05:41 Platelet Estimate Normal (Normal) 08/07/24 06:52 APTT 77.4 SECONDS (23.9-36.7) H 08/07/24 06:52 Specimen Type Arterial 08/04/24 16:35 Sample Site Radial, left 08/04/24 16:35 ABG pH 7.46 (7.35-7.45) H 08/04/24 16:35 ABG pCO2 39.3 mmHg (35-45) 08/04/24 16:35 ABG pO2 56.5 mmHg (80.0-100.0) L 08/04/24 16:35 ABG PO2/FiO2 Ratio 269 08/04/24 16:35 ABG HCO3 27.9 mmol/L (22-26) H 08/04/24 16:35 ABG O2 Saturation 90.4 08/04/24 16:35 ABG Base Excess 3.8 mmol/L (-2.0-2.0) H 08/04/24 16:35 David Test Pos 08/04/24 16:35 A-a O2 Gradient 5.8 mmHg (5-10) 08/04/24 16:35 Hematocrit 39.2 % (37-47) 08/04/24 16:35 Hgb O2 Saturation 88.7 % (95-100) L 08/04/24 16:35 Carboxyhemoglobin 0.8 %THgb (0.4-20.1) 08/04/24 16:35 Methemoglobin 1.0 % (0.4-1.5) 08/04/24 16:35 Total Hemoglobin 12.8 g/dL (12-16) 08/04/24 16:35 Sodium 125.0 mmol/L (131-143) L 08/04/24 16:35 Potassium 2.7 mmol/L (3.5-5.0) L 08/04/24 16:35 Glucose 122.0 mg/dL (70-115) H 08/04/24 16:35 Ionized Calcium 1.2 mmol/L (1.1-1.4) 08/04/24 16:35 O2 Delivery Device Room air 08/04/24 16:35 FiO2 21.0 % 08/04/24 16:35 [facility] Cak 08/04/24 16:35 Sodium 133 mmol/L (136-145) L 08/07/24 06:52 Potassium 4.2 mmol/L (3.5-5.1) 08/07/24 06:52 Chloride 94 mmol/L (98-107) L 08/07/24 06:52 Carbon Dioxide 22 mmol/L (22-29) 08/07/24 06:52 Anion Gap 21.2 (5-19) H 08/07/24 06:52 BUN 29 mg/dL (8-23) H 08/07/24 06:52 Creatinine 1.0 mg/dL (0.5-0.9) H 08/07/24 06:52 GFR Calculation Not Reportable 08/07/24 06:52 Glucose 104 mg/dL (65-115) 08/07/24 06:52 Calculated Osmolality 282 mOsm/kg (285-295) L 08/07/24 06:52 Lactic Acid 1.4 mmol/L (0.5-2.2) 08/04/24 16:50 Lactate 1.1 mmol/L (0.5-2.2) 08/04/24 21:53 Calcium 9.1 mg/dL (8.5-10.5) 08/07/24 06:52 Phosphorus 2.4 mg/dL (2.5-4.5) L 08/05/24 04:06 Magnesium 1.8 mg/dL (1.7-2.3) 08/07/24 06:52 Total Bilirubin 0.4 mg/dL (0.15-1.2) 08/07/24 06:52 AST 93 U/L (0-32) H 08/07/24 06:52 ALT 62 U/L (0-33) H 08/07/24 06:52 Alkaline Phosphatase 289 U/L (35-105) H 08/07/24 06:52 Troponin T Baseline 36 ng/L (0-10) H 08/04/24 16:50 Troponin T 120 Minute 51.98 ng/L (0-10) H 08/04/24 18:52 Delta Troponin T 15.98 ABS# (0-10) H* 08/04/24 18:52 Troponin T Hi Sens 6Hr 94.95 ng/L (0-10) H 08/04/24 22:59 Troponin T Hi Sens 6Hr Delta 58.95 ng/L (0-12) H* 08/04/24 22:59 Total Protein 5.6 g/dL (6.6-8.7) L 08/07/24 06:52 Albumin 3.2 g/dL (3.5-5.2) L 08/07/24 06:52 Globulin 2.4 g/dL (1.3-4.6) 08/07/24 06:52 Lipase 6 U/L (13-60) L 08/04/24 16:50 Vitamin B12 450 pg/mL (232-1245) 08/04/24 16:50 TSH 0.35 uIU/mL (0.27-4.20) 08/05/24 04:06 Urine Color Yellow (Yellow) 08/04/24 16:47 Urine Appearance Cloudy (CLEAR) A 08/04/24 16:47 Urine pH 6.0 (5-7) 08/04/24 16:47 Ur Specific Lottie 1.019 (1.005-1.030) 08/04/24 16:47 Urine Protein 3+ (Negative) A 08/04/24 16:47 Urine Glucose (UA) Negative (Normal) 08/04/24 16:47 Urine Ketones Trace (Negative) 08/04/24 16:47 Urine Blood 3+ (Negative) A 08/04/24 16:47 Urine Nitrate Negative (Negative) 08/04/24 16:47 Urine Bilirubin Negative (Negative) 08/04/24 16:47 Urine Urobilinogen 1.0 mg/dL (Negative) 08/04/24 16:47 Ur Leukocyte Esterase 2+ (Negative) A 08/04/24 16:47 Urine RBC 6-10 /hpf (0-2) 08/04/24 16:47 Urine WBC >100 /hpf (0-5) H 08/04/24 16:47 Ur Squamous Epith Cells 0-5 /hpf (0-5) 08/04/24 16:47 Amorphous Sediment Not Reportable 08/04/24 16:47 Urine Bacteria Exceeds /hpf (NONE) 08/04/24 16:47 Hyaline Casts 6.17 /lpf 08/04/24 16:47 Lyme Ab (Western Blot) <0.90 index 08/04/24 18:52 Coronavirus (PCR) Negative (Negative) 08/04/24 17:07 Influenza A (PCR) Negative (Negative) 08/04/24 17:07 Influenza Type B (PCR) Negative (Negative) 08/04/24 17:07 RSV (PCR) Negative (Negative) 08/04/24 17:07 Vitals Last Vital Signs Temp 97.8 F 08/07/24 04:00 Pulse 67 08/07/24 07:54 Resp 16 08/07/24 04:00 BP 163/83 08/07/24 07:54 Pulse Ox 93 08/07/24 04:00 O2 Del Method Room Air 08/07/24 04:00 O2 Flow Rate 2 08/05/24 08:00 Discharge Plan Discharge Patient Disposition: Home Condition: Stable Prescriptions: New aspirin 81 mg capsule 81 mg PO DAILY Qty: 90 0RF atorvastatin 40 mg Tablet 40 mg PO BEDTIME Qty: 90 0RF nicotine 21 mg/24 hr Patch 24 Hour 1 patch transdermal DAILY Qty: 90 3RF doxycycline hyclate 100 mg tablet 100 mg PO BID 11 Days Qty: 22 0RF cefdinir 300 mg capsule 300 mg PO BID 7 Days Qty: 14 0RF Continued lisinopril-hydrochlorothiazide 20-12.5 mg tablet 1 tab PO DAILY Qty: 90 3RF cyclobenzaprine 10 mg tablet 10 mg PO TID PRN (Reason: muscle spasm) Qty: 45 1RF (DME) BEATRIZ SUAZO LEFT See Rx Instructions .Route .MEDSUPPLY Qty: 1 0RF Rx Instructions: As directed gabapentin 300 mg capsule 300 mg PO DAILY PRN (Reason: restless legs, neuropathy) Qty: 90 1RF silver sulfadiazine [Silvadene] 1 % cream 1 applic topical DAILY Qty: 50 0RF Rx Instructions: apply a 1.5 mm thickness acetaminophen-codeine 300-15 mg tablet 1 tab PO TID PRN (Reason: pain) Qty: 90 0RF Discontinued scopolamine base 1 mg over 3 days patch 3 day 1 patch transdermal Q72H PRN (Reason: nausea and vomiting/sea sickness) Qty: 10 0RF Discharge Orders: Discharge Order (Routine); Ordered 08/07/24 Ordered By: Anthony Diaz Referrals: Janette Perdomo FNP [Nurse Practitioner] - 1 week (We have notified your physician's clinic of the need for a follow-up appointment to be scheduled. If you have not heard from them within the next 2 business days, please call them directly. ) Abiodun Joiner, [Primary Care Provider] - 08/11/24 10:20 am Discharge Diet: Cardiac Discharge Activity: Increase activity as tolerated, Limit activity as instructed, Use walker/crutches as instructed and As per PT/OT instructions Patient Instructions: Coronary Artery Disease (GEN), How to Stop Smoking (GEN), Urinary Tract Infection in Women (GEN), Hyponatremia (GEN), Cigarette Smoking and Your Health (GEN), Altered Mental Status (ED), Fall Prevention (GEN), Prevent Cardiovascular Disease (GEN) Activity Restrictions/Additional Instructions: Follow-up with your primary provider for reassessment after urinary tract infection, episode of encephalopathy and delirium, sepsis, complete antibiotic course. Follow-up with your primary provider as well as with cardiology for additional assessment after NSTEMI with finding of likely old heart attack scar on stress testing. Continue to work with your primary provider and with cardiology to optimize cardiovascular risk factors to prevent further heart attack, stroke and other complications. Please stop smoking to help reduce risk of the above as well as risk of lung disease, various cancers. Seek help from your primary provider to help you stop smoking. Continue aspirin 81 mg and atorvastatin. Please have your primary provider recheck your sodium level due to low sodium seen on presentation which has been improving. Avoid reducing sodium in your diet. Continue doxycycline for now, please have your primary doctor follow-up tick panel results for possible tickborne infection. Please have your primary provider follow-up your liver parameters with mild elevation of AST, ALT, moderate elevation alkaline phosphatase. Please be aware doxycycline can cause photosensitivity, avoid direct sun exposure while on the medication. Please exercise caution with gabapentin which sometimes can contribute to confusion in case there is ever mental status change. Additionally please be cautious with tonic water which in large quantities can sometimes have toxic effects especially if combined with other anticholinergic medications like scopolamine. Discharge Attestations Time Spent in Discharge Care*: greater than 30 min Quality Metrics Clinical Quality Measures [ No reported AMI, CVA or VTE this stay] Coding Level of Care Code 36858 Total time (in minutes) for Discharge: 55 Diagnoses NSTEMI (non-ST elevated myocardial infarction) I21.4 UTI (urinary tract infection) N39.0 Acute encephalopathy G93.40 Sepsis A41.9 Hyponatremia E87.1 Hypokalemia E87.6 Hypomagnesemia E83.42 Hypertension I10
[2024-08-07 12:00] VITALS: BP 131/69; PULSE 67; RESP 16; TEMP 36.6; O2SAT 96
--- NOTE | 2024-08-07 13:35 | NMCV_ITS ---
NM tatyana perf SPECT r/s* [id number] Milana Henning Age: 74 Gender: F : 1950 Exam Date: 08/07/2024 06:57 Ordering Phys: Anthony Diaz MD Technologist: LE Alcantar Exam Location: [facility] Indications: CP, SOB STRESS TEST Please see separate stress test report in [facility] for full findings IMAGE PROTOCOL Rest/Stress 1 Lexiscan Day Radiopharmaceutical Dose (mCi) Administration Site Administered by Rest: Tc-99m 10.5 IV LE Alcantar Sestamibi Stress:Tc-99m 31.5 IV LE Alcantar Sestamibi Rest: 07-Aug-2024 60 Discovery 630 Stress: 07-Aug-2024 45 Discovery 630 0.4mg Lexiscan. Images obtained in supine and prone position. SPECT RESULTS Technical Quality: Good Raw Data Analysis: Subdiaphragmatic activity. Unable to clear the bowel Image Corrections: No attenuation or motion correction applied Summed Stress Score: 14 Summed Rest Score: 16 Summed Difference Score: 1 PERFUSION FINDINGS FUNCTIONAL RESULTS (calculated via Gated SPECT) Stress Image LV EF (%): 57 Stress EDV (mL):101 TID: 1.16 Stress ESV (mL):43 FUNCTIONAL FINDINGS: There is normal left ventricular systolic function. IMPRESSIONS Large area of fixed perfusion defect was noted in basal to distal inferior inferoseptal and basal to mid inferolateral wall without significant reversibility. It is suggestive of old myocardial infarction versus scarring however cannot rule out large attenuation gut artifact in the absence of wall motion abnormality. This study is negative for ischemia. Andrey Martinez MD (Electronically Signed) Final Date: 07 August 2024 09:18 S
[2024-08-07 13:46] VITALS: BP 131/69; PULSE 67; RESP 16; TEMP 36.6; O2SAT 96
[2024-08-08 18:20] LABS: RMSF IGG NOT DETECTED; RMSF IGM NOT DETECTED
[2024-08-10 17:25] LABS: E. Chaffeensis AB IGG <1:64; E. Chaffeensis AB IGM <1:20
== END 2024-08-07 12:50 | disposition home or self-care (01) | DRG 871 ==
LOC: ER 17:04 → MEDSURG 18:40
PROVIDERS: Family Medicine; Admitting Provider Internal Medicine; Emergency Provider Family Medicine; PCP Family Medicine; Visit Provider Internal Medicine
DX: A41.9 Sepsis, unspecified organism (principal); G93.41 Metabolic encephalopathy; I21.4 Non-ST elevation (NSTEMI) myocardial infarction; E87.1 Hypo-osmolality and hyponatremia; N39.0 Urinary tract infection, site not specified; Z16.11 Resistance to penicillins; Z16.29 Resistance to other single specified antibiotic; I10 Essential (primary) hypertension; G25.81 Restless legs syndrome; F17.200 Nicotine dependence, unspecified, uncomplicated; E87.6 Hypokalemia; E83.42 Hypomagnesemia; L98.499 Non-pressure chronic ulcer of skin of other sites with unspecified severity; Z79.899 Other long term (current) drug therapy; B96.20 Unspecified Escherichia coli [E. coli] as the cause of diseases classified elsewhere; R74.01 Elevation of levels of liver transaminase levels
CPT/HCPCS: 0241U; 36415; 36600; 70450; 71045; 74176; 78452; 80051; 80053; 81001; 82330; 82607; 82805; 83605; 83690; 83735; 84100; 84295; 84443; 84484; 85007; 85025; 85730; 86618; 86666; 86757; 87040; 87086; 87186; 92507; 92523; 92610; 93005; 93017; 93306; 96365; 96366; 96375; 97116; 97161; 97530; 99285; A9500; J0696; J1644; J2405; J2785; J3475; J3480; J3490; J7120

== ENCOUNTER → 2024-08-11 10:59 | Outpatient (BNVA) | payer MEDICARE, SELFPAY | PROVIDERS: PCP Family Medicine; Visit Provider Family Medicine | DX: E87.1 Hypo-osmolality and hyponatremia (principal); E87.6 Hypokalemia; A41.9 Sepsis, unspecified organism | CPT/HCPCS: 80053; 85025 ==

== ENCOUNTER → 2024-09-14 09:22 | Outpatient (BNVA) | payer MEDICARE, SELFPAY | PROVIDERS: PCP Family Medicine; Visit Provider Family Medicine | DX: R74.8 Abnormal levels of other serum enzymes (principal) | CPT/HCPCS: 80053 ==

== ENCOUNTER → 2024-10-13 09:16 | Outpatient (BNVA) | payer MEDICARE, SELFPAY | PROVIDERS: PCP Family Medicine; Visit Provider Student in an Organized Health Care Education/Training Program | DX: Z87.81 Personal history of (healed) traumatic fracture (principal) | CPT/HCPCS: 73502; 99213 ==

== ENCOUNTER → 2024-11-12 09:57 | Outpatient (BNVA) | payer MEDICARE, SELFPAY | PROVIDERS: PCP Family Medicine; Visit Provider Family Medicine | DX: I10 Essential (primary) hypertension (principal); G25.81 Restless legs syndrome | CPT/HCPCS: 82607 ==

== ENCOUNTER 2025-01-27 13:07 | Emergency (ER) | payer MEDICARE, SELFPAY ==
[2025-01-27 13:11] VITALS: BP 171/77; PULSE 78; RESP 16; TEMP 36.4; O2SAT 99
--- NOTE | 2025-01-27 13:18 | XR_ITS ---
WS: [id number] XR ankle LT min 3V* [id number] REASON FOR EXAM: fall/pain FINDINGS: Mild soft tissue swelling around the medial and lateral malleolus. No acute fracture identified. Joint spaces of the left ankle are intact and well preserved. XR/XR ankle LT min 3V* [id number] IMPRESSION: Soft tissue swelling about the ankle joint. No acute bone or joint abnormality.
--- NOTE | 2025-01-27 13:24 | W.ED.EXTPRO ---
HPI - Extremity Problem General: Chief complaint: Extremity Injury, Lower Stated complaint: left ankle pain Time Seen by Provider: 01/27/25 13:17 Source: patient Mode of arrival: ambulatory Limitations: no limitations History of Present Illness: 74-year-old female presents to the ER complaining of an ankle sprain on left leg. Patient states she tripped over her dog this morning and sprained her left ankle. Patient states she had no pain at first and then it slowly started to increase. She describes the pain as throbbing, aching, stabbing. She states the pain is 10 out of 10 on a scale of 1-10. She is unable to bear weight on her left leg. Patient denies using ice, Advil, Tylenol for pain. Patient reports no similar incident has happened in the past. MD Complaint: extremity pain Onset (ago): hour(s) Pain Consistency: constant Location: left Severity scale (1-10): 10 Quality: stabbing, aching and sharp Radiation: none Relieving factors: nothing Exacerbating factors: range of motion, weight bearing, walking and palpation Associated symptoms: Reports no associated symptoms; Deny chest pain, fever(s) or rash Related Data Previous Rx's ?Medication ?Instructions ?Recorded cyclobenzaprine 10 mg tablet 10 mg PO TID PRN muscle spasm #45 11/05/23 tabs BEATRIZ HOSE LEFT #1 ea 11/26/23 silver sulfadiazine 1 % topical 1 applic topical DAILY wound #50 05/11/24 cream (Silvadene) grams aspirin 81 mg capsule 81 mg PO DAILY #90 caps 08/07/24 atorvastatin 40 mg tablet 40 mg PO BEDTIME #90 tabs 08/07/24 nicotine 21 mg/24 hr daily 1 patch transdermal DAILY #90 ea 08/07/24 transdermal patch mupirocin 2 % topical ointment 1 applic topical BID skin 08/11/24 ulceration #22 grams acetaminophen 300 mg-codeine 15 mg 1 tab PO TID PRN pain #90 tabs 11/08/24 tablet lisinopril 20 1 tab PO DAILY #90 tabs 11/08/24 mg-hydrochlorothiazide 12.5 mg tablet amlodipine 5 mg tablet 5 mg PO DAILY bp #90 tabs 11/12/24 gabapentin 300 mg capsule 300 mg PO BID PRN restless legs, 12/17/24 neuropathy #180 caps Allergies Allergy/AdvReac Type Severity Reaction Status Date / Time No Known Allergies Allergy Verified 01/27/25 13:16 Review of Systems General: Reports: 10 or more systems reviewed and unremarkable except in HPI and below Const: Denies: fever(s), chills or body aches Card: Denies: chest pain or palpitations Resp: Denies: dyspnea Musc: Reports: extremity pain (L. ankle), extremity swelling (L. ankle), joint swelling (L. ankle) and limited range of motion (L. ankle); Denies: neck pain, back pain, joint redness, joint warmth or muscle cramps Skin/Breast: Denies: rash or erythema PFSH ED PFSH: Medical History Hypertension Status post fracture of left hip Smoking Family History Other No significant family history Social History Smoking and tobacco/nicotine status: current every day tobacco/nicotine user Alcohol intake: current Alcohol intake frequency: holidays/special occasions only Lives independently: Yes Household members: spouse Marital status: Physical Exam Const: COMMON NORMALS: no acute distress, patient oriented x3, no limitations, healthy appearing, alert and well nourished GENERAL APPEARANCE: cooperative ORIENTATION/CONSCIOUSNESS: Yes awake, Yes oriented to place and Yes oriented to time Chest: COMMONS NORMALS: normal inspection of the chest Resp: COMMON NORMALS: normal respiratory effort and clear to auscultation bilaterally EFFORT & INSPECTION: Yes able to speak in complete sentences AUSCULTATION: clear to auscultation bilaterally Cardio: COMMON NORMALS: regular rate and regular rhythm RATE: regular rate RHYTHM: regular rhythm Extremity: COMMON NORMALS: full ROM, capillary refill normal and no calf tenderness NARRATIVE EXTREMITY EXAM: 2+ dorsalis pedis posterior tibial pulse LEFT LOWER EXTREMITY: Yes ankle joint (L. ankle swollen and pain with palpation, dorsiflexion, and plantarflexion ) Left ankle: Yes inspection, Yes palpation and Yes ROM Neuro: COMMON NORMALS: patient oriented x3, moves all extremities, no focal motor deficits and no sensory deficits noted SENSORIUM/ORIENTATION: Yes alert, Yes oriented to place and Yes oriented to time Skin: COMMON NORMALS: no rashes or lesions noted GENERAL SKIN EXAM: no rashes or lesions noted Course Vital Signs: Vital signs: Vital Signs Temperature 97.6 F 01/27/25 13:11 Pulse Rate 72 01/27/25 13:50 Respiratory Rate 16 01/27/25 13:11 Blood Pressure 168/88 01/27/25 13:50 Pulse Oximetry 99 01/27/25 13:50 Oxygen Delivery Me thod Room Air 01/27/25 13:11 MDM - Extremity (Nontraumatic) Medical Decision Making Patient had tripped over her dog at about 0900 this morning. Arrived with left ankle pain. Some swelling noted on exam with tenderness, overall no deformity or neurovascular compromise. No joint laxity on exam. X-rays negative for any fracture, suspect ankle sprain at this time we will treat conservatively. Patient agrees with this plan and return precautions given. Lab Data Radiology Impressions Ankle X-Ray 01/27/25 13:18 IMPRESSION: Soft tissue swelling about the ankle joint. No acute bone or joint abnormality. All radiology interpretation(s) finalized by discharge Discharge Plan Discharge Patient Disposition: Home Clinical Impression: Left ankle sprain Condition: Stable Prescriptions: No Action cyclobenzaprine 10 mg tablet 10 mg PO TID PRN (Reason: muscle spasm) Qty: 45 1RF (DME) BEATRIZ LUDWIGE LEFT See Rx Instructions .Route .MEDSUPPLY Qty: 1 0RF Rx Instructions: As directed silver sulfadiazine [Silvadene] 1 % cream 1 applic topical DAILY Qty: 50 0RF Rx Instructions: apply a 1.5 mm thickness mupirocin 2 % ointment 1 applic topical BID Qty: 22 1RF amlodipine 5 mg tablet 5 mg PO DAILY Qty: 90 1RF acetaminophen-codeine 300-15 mg tablet 1 tab PO TID PRN (Reason: pain) Qty: 90 0RF lisinopril-hydrochlorothiazide 20-12.5 mg tablet 1 tab PO DAILY Qty: 90 3RF gabapentin 300 mg capsule 300 mg PO BID PRN (Reason: restless legs, neuropathy) Qty: 180 1RF aspirin 81 mg capsule 81 mg PO DAILY Qty: 90 0RF atorvastatin 40 mg Tablet 40 mg PO BEDTIME Qty: 90 0RF nicotine 21 mg/24 hr Patch 24 Hour 1 patch transdermal DAILY Qty: 90 3RF Discharge Orders: Discharge ED (Routine); Ordered 01/27/25 Ordered By: Tera Palacios Referrals: Abiodun Joiner, [Primary Care Provider] - Patient Instructions: Ankle Sprain (ED) Activity Restrictions/Additional Instructions: Rest, ice, compression, and elevation. Ibuprofen and Tylenol for pain. Gentle range of motion exercises and weightbearing as tolerated. Please see the attached patient instructions for further education. Follow-up with your primary care provider. Print Language: Northern Irish Coding Level of Care Code ED Supervisor Smoke Control for Gerry Sánchez
[2025-01-27] MEDS: ketorolac 60 mg/2 mL INJ IM (13:38)
[2025-01-27 13:50] VITALS: BP 168/88; PULSE 72; O2SAT 99
== END 2025-01-27 13:51 | disposition home or self-care (01) ==
PROVIDERS: Emergency Provider Physician Assistant; PCP Family Medicine
DX: S93.402A Sprain of unspecified ligament of left ankle, initial encounter (principal); Z79.82 Long term (current) use of aspirin; Z72.0 Tobacco use; I10 Essential (primary) hypertension; W01.0XXA Fall on same level from slipping, tripping and stumbling without subsequent striking against object, initial encounter
CPT/HCPCS: 73610; 96372; 99284; J1885

== ENCOUNTER → 2025-03-25 13:31 | Outpatient (BNVA) | payer MEDICARE, SELFPAY | PROVIDERS: PCP Family Medicine; Visit Provider Family Medicine | DX: E03.9 Hypothyroidism, unspecified (principal); E87.1 Hypo-osmolality and hyponatremia; R74.8 Abnormal levels of other serum enzymes; E83.42 Hypomagnesemia; L65.9 Nonscarring hair loss, unspecified; R63.2 Polyphagia | CPT/HCPCS: 80053; 83735; 84439; 84443; 84480; 85025 ==

== ENCOUNTER → 2025-09-28 09:09 | Outpatient (BNVA) | payer MEDICARE, SELFPAY | PROVIDERS: PCP Family Medicine; Visit Provider Student in an Organized Health Care Education/Training Program | DX: Z87.81 Personal history of (healed) traumatic fracture (principal); Z98.890 Other specified postprocedural states; M70.62 Trochanteric bursitis, left hip | CPT/HCPCS: 73502; 99213 ==

== ENCOUNTER 2025-10-29 19:53 | Emergency (ER) | payer MEDICARE, SELFPAY ==
[2025-10-29 19:57] VITALS: BP 188/112; PULSE 75; RESP 16; TEMP 36.7; O2SAT 98; BMI 19.5
--- NOTE | 2025-10-29 20:50 | XRR_ITS ---
PROCEDURE INFORMATION: Exam: XR Left Shoulder Exam date and time: 10/29/2025 8:54 PM Age: 75 years old Clinical indication: Injury or trauma; Fall; Blunt trauma (contusions or hematomas); Shoulder; Left; Additional info: Fall, left humerous inj, 3 view please TECHNIQUE: Imaging protocol: Radiologic exam of the left shoulder. Views: 2 or more views. COMPARISON: CR XR chest 1V portable [id number] 08/04/2024 4:38 PM FINDINGS: Bones/joints: Mildly displaced comminuted fracture of the cervical neck of the left humerus. Subtle fracture of the greater tuberosity. Acromioclavicular and glenohumeral joints are normal for age. Soft tissues: Normal. XR/XR shoulder LT min 2V* [id number] IMPRESSION: Mildly displaced comminuted fracture of the cervical neck of the left humerus. Subtle fracture of the greater tuberosity.
--- NOTE | 2025-10-29 20:53 | W.ED.EXTPRO ---
HPI - Extremity Problem General: Chief complaint: Extremity Injury, Upper Stated complaint: fall left arm injury Time Seen by Provider: 10/29/25 20:07 History of Present Illness: 75-year-old female with history HTN, slipped, fall, and did not put her arm out, because she had the last time, and broke her wrist, and was trying to avoid her hip that she was previously fractured on the left side, and hit directly on her left proximal arm. This occurred at 1800 tonight Patient states she has pain in her left proximal arm. No other injuries. Associated symptoms: Deny chest pain or fever(s) Related Data Previous Rx's ?Medication ?Instructions ?Recorded cyclobenzaprine 10 mg tablet 10 mg PO TID PRN muscle spasm #45 11/05/23 tabs BEATRIZ HOSE LEFT #1 ea 11/26/23 silver sulfadiazine 1 % topical 1 applic topical DAILY wound #50 05/11/24 cream (Silvadene) grams aspirin 81 mg capsule 81 mg PO DAILY #90 caps 08/07/24 atorvastatin 40 mg tablet 40 mg PO BEDTIME #90 tabs 08/07/24 nicotine 21 mg/24 hr daily 1 patch transdermal DAILY #90 ea 08/07/24 transdermal patch mupirocin 2 % topical ointment 1 applic topical BID skin 08/11/24 ulceration #22 grams gabapentin 300 mg capsule 300 mg PO TID PRN restless legs, 04/15/25 neuropathy #270 caps lisinopril 20 1 tab PO DAILY #90 tabs 04/15/25 mg-hydrochlorothiazide 12.5 mg tablet amlodipine 5 mg tablet 5 mg PO DAILY bp #90 tabs 05/13/25 acetaminophen 300 mg-codeine 15 mg 1 tab PO TID PRN pain #90 tabs 09/27/25 tablet hydrocodone 10 mg-acetaminophen 1 tab PO Q8H PRN pain #10 tabs 10/29/25 325 mg tablet methocarbamol 500 mg tablet 500 mg PO Q8H PRN muscle spasm #30 10/29/25 tabs Allergies Allergy/AdvReac Type Severity Reaction Status Date / Time No Known Allergies Allergy Verified 10/29/25 20:05 Review of Systems Const: Denies: fever(s) or chills Card: Denies: chest pain or dyspnea on exertion Resp: Denies: dyspnea, productive cough or wheezing GI: Denies: abdominal pain, nausea or vomiting : Denies: difficulty voiding Musc: Reports: joint pain, joint swelling and limited range of motion Skin/Breast: Denies: changes in skin color or dry skin Neuro: Denies: numbness in extremities or weakness in extremities Psych: Denies: anxiety Jimenez/Lymph: Denies: easy bruising or easy bleeding PFSH ED PFSH: Medical History Hypertension Status post fracture of left hip Smoking Family History Other No significant family history Social History Smoking and tobacco/nicotine status: current every day tobacco/nicotine user Alcohol intake: current Alcohol intake frequency: holidays/special occasions only Lives independently: Yes Household members: spouse Marital status: Physical Exam Const: COMMON NORMALS: no acute distress, average body habitus, no limitations, healthy appearing and alert HENMT: COMMON NORMALS: normocephalic and atraumatic HEAD & SCALP: normocephalic and atraumatic Chest: COMMONS NORMALS: normal inspection of the chest and normal palpation of entire chest wall Resp: COMMON NORMALS: normal respiratory effort, No retractions, No use of accessory muscles and clear to auscultation bilaterally AUSCULTATION: clear to auscultation bilaterally Cardio: COMMON NORMALS: regular rate and regular rhythm RATE: regular rate RHYTHM: regular rhythm GI: COMMON NORMALS: Normal to inspection, nondistended, normoactive bowel sounds present, Soft to palpation, non-tender and No hepatosplenomegaly present PALPATION: Yes Soft to palpation and Yes No hepatosplenomegaly present : COMMON NORMALS: Yes no CVA tenderness BLADDER/KIDNEY EXAM: Yes no CVA tenderness Back/Pelvis: COMMON NORMALS: no CVA tenderness and thoracic and lumbar spine normal to inspection Extremity: COMMON NORMALS: normal to inspection, full ROM and capillary refill normal Neuro: SENSORIUM/ORIENTATION: Yes alert Psych: COMMON NORMALS: mental status grossly normal, Normal thought process present, cooperative, normal affect and speech normal SPEECH: Yes normal speech THOUGHT PROCESS: Normal thought process present Skin: GENERAL SKIN EXAM: dry skin Course Vital Signs: Vital signs: Vital Signs Temperature 98.0 F 10/29/25 19:57 Pulse Rate 70 10/29/25 22:01 Respiratory Rate 16 10/29/25 22:01 Blood Pressure 170/89 10/29/25 22:01 Pulse Oximetry 98 10/29/25 22:01 Oxygen Delivery Me thod Room Air 10/29/25 21:49 MDM - Extremity (Nontraumatic) Medical Decision Making 75-year-old female that tripped, falling on her left shoulder. Her proximal humeral head fracture minimally displaced is noted. She is placed in a sling, [place] was given. Patient is already established with Dr. Elizondo, whom she will call on Saturday for follow-up the end of next week for further advisement. All her questions answered satisfaction. Medical Records I reviewed the patient's medical records. Lab Data Radiology Impressions Shoulder X-Ray 10/29/25 20:50 IMPRESSION: Mildly displaced comminuted fracture of the cervical neck of the left humerus. Subtle fracture of the greater tuberosity. All radiology interpretation(s) finalized by discharge Discharge Plan Discharge Patient Disposition: Home Clinical Impression: Closed fracture of head of left humerus Qualifiers: Encounter type: initial encounter Qualified Code(s): S42.292A - Other displaced fracture of upper end of left humerus, initial encounter for closed fracture Condition: Stable Prescriptions: New hydrocodone-acetaminophen 10-325 mg tablet 1 tab PO Q8H PRN (Reason: pain) Qty: 10 0RF methocarbamol 500 mg tablet 500 mg PO Q8H PRN (Reason: muscle spasm) Qty: 30 0RF No Action cyclobenzaprine 10 mg tablet 10 mg PO TID PRN (Reason: muscle spasm) Qty: 45 1RF (DME) BEATRIZ LUDWIGE LEFT See Rx Instructions .Route .MEDSUPPLY Qty: 1 0RF Rx Instructions: As directed silver sulfadiazine [Silvadene] 1 % cream 1 applic topical DAILY Qty: 50 0RF Rx Instructions: apply a 1.5 mm thickness mupirocin 2 % ointment 1 applic topical BID Qty: 22 1RF gabapentin 300 mg capsule 300 mg PO TID PRN (Reason: restless legs, neuropathy) Qty: 270 1RF lisinopril-hydrochlorothiazide 20-12.5 mg tablet 1 tab PO DAILY Qty: 90 3RF amlodipine 5 mg tablet 5 mg PO DAILY Qty: 90 3RF acetaminophen-codeine 300-15 mg tablet 1 tab PO TID PRN (Reason: pain) Qty: 90 0RF aspirin 81 mg capsule 81 mg PO DAILY Qty: 90 0RF atorvastatin 40 mg Tablet 40 mg PO BEDTIME Qty: 90 0RF nicotine 21 mg/24 hr Patch 24 Hour 1 patch transdermal DAILY Qty: 90 3RF Discharge Orders: Discharge ED (Routine); Ordered 10/29/25 Ordered By: Jessica Manzanares Referrals: Brady Elizondo DO [Physician, Orthopedics] - 7-10 days Abiodun Joiner DO [Primary Care Provider, Family Practice] Discharge Diet: Usual diet Discharge Activity: Limit activity as instructed and Use walker/crutches as instructed Patient Instructions: Arm Fracture in Adults (ED), Opioid Safety, Pain Management, Patient Portal & Alejo Instructions Activity Restrictions/Additional Instructions: - When you get home: Make sure you ice this area - At the pharmacy: Hydrocodone, caution on sedation. Do not drive with this medication. Methocarbamol/Robaxin: A powerful muscle relaxer. Do not take with the hydrocodone, however this will help with the muscle spasming. Caution on sedation effects. - You may take ibuprofen, and Tylenol instead of the medication above. Caution on too much Tylenol as it is in your hydrocodone. - We discussed: You calling Dr. Elizondo's office for follow-up end of next week. - Do not raise your arm up. Keep it in a sling. You can take a modified shower with holding your arm, and help. - Caution on any falls. You support, so you do not fall. - You are welcome to come back to the ED to have another medical examination if you have further issues with this left arm. I am sorry you fell tonight. Thank you for choosing [facility] for your healthcare needs today. You have been screened and evaluated and felt safe for discharge. Health conditions do change or evolve sometimes and as such it is important that you follow up with your Primary Doctor to be re checked, 3-5 days is a general good time frame for follow up. You are always welcome to return to the ED for re assessment if your symptoms are worsening or you have new concerns Print Language: French Coding Level of Care Code ED Plastic Surgery Assistant for Gerry Sánchez
[2025-10-29] MEDS: HYDROcodone-acetaminophen 10-325 mg Tablet 1 TAB PO (21:43)
[2025-10-29] MEDS: ondansetron hcl ODT 4 mg Tab PO (21:44)
[2025-10-29 21:49] VITALS: BP 170/86; PULSE 82; RESP 16; O2SAT 95
[2025-10-29 22:01] VITALS: BP 170/89; PULSE 70; RESP 16; O2SAT 98
[2025-10-29] MEDS: HYDROcodone-acetaminophen 10-325 mg Tablet 2 TAB PO (22:16)
== END 2025-10-29 22:17 | disposition home or self-care (01) ==
PROVIDERS: Emergency Provider Physician Assistant; PCP Family Medicine
DX: S42.292A Other displaced fracture of upper end of left humerus, initial encounter for closed fracture (principal); Z79.82 Long term (current) use of aspirin; Z72.0 Tobacco use; I10 Essential (primary) hypertension; W01.0XXA Fall on same level from slipping, tripping and stumbling without subsequent striking against object, initial encounter
CPT/HCPCS: 73030; 99283; J9999; Q0162

== ENCOUNTER → 2025-11-05 08:53 | Outpatient (BNVA) | payer MEDICARE, SELFPAY | PROVIDERS: PCP Family Medicine; Visit Provider Student in an Organized Health Care Education/Training Program | DX: S42.202A Unspecified fracture of upper end of left humerus, initial encounter for closed fracture (principal); W01.0XXA Fall on same level from slipping, tripping and stumbling without subsequent striking against object, initial encounter | CPT/HCPCS: 73030 ==

== ENCOUNTER 2025-11-05 10:02 | Outpatient (CLI) | payer MEDICARE, SELFPAY | END 2025-11-05 10:03 | disposition home or self-care (01) | LOC: SPT 10:03 | PROVIDERS: PCP Family Medicine; Visit Provider Student in an Organized Health Care Education/Training Program | DX: Z46.89 Encounter for fitting and adjustment of other specified devices (principal); S42.292D Other displaced fracture of upper end of left humerus, subsequent encounter for fracture with routine healing; X58.XXXD Exposure to other specified factors, subsequent encounter | CPT/HCPCS: 99214; A4565 ==

== ENCOUNTER → 2025-11-23 09:01 | Outpatient (BNVA) | payer MEDICARE, SELFPAY | PROVIDERS: PCP Family Medicine; Visit Provider Physician Assistant | DX: S42.292D Other displaced fracture of upper end of left humerus, subsequent encounter for fracture with routine healing (principal); X58.XXXD Exposure to other specified factors, subsequent encounter | CPT/HCPCS: 73030; 99024; 99213 ==